=== PATIENT | female | born 1940 | race Caucasian/White ===

== ENCOUNTER 2017-04-21 00:09 | Inpatient (IN) | payer MEDICARE, OTHER ==
--- NOTE | 2017-04-21 00:40 | ERNOTE ---
Abdominal HPI - Narrative Date of Service: 04/21/17 - General Chief Complaint: Abdominal Pain Time Seen by Provider: 04/21/17 00:36 Source: patient, family Exam Limitations: other - THE PT REMEBERS MOST THINGS WELL BUT SEEMS CONFUSED ON OTHERS. FAMILY SAYS SHE DOES NOT HAVE DEMENTIA DIAGNOSED BUT HAS BEEN "FOGGY " SINCE HER SURGERY. - Immun/Allergies/Home Medications Immunizatons: IMMUNIZATION HX Immunizations Up to Date Yes History of Influenza Vaccine Yes Hx Pneumococcal Vaccination Yes Allergies/Adverse Reactions: Allergies gentamicin [Gentamicin] Allergy (Verified 04/21/17 00:28) adhesive Adverse Reaction (Verified 04/21/17 00:28) Home Medications: HOME MEDICATIONS Acetaminophen 650 mg PO PRN PRN 04/21/17 [Last Taken Unknown] Albuterol Sulfate [Albuterol Sulfate 0.63 MG/3ML] INH PRN PRN 04/21/17 [Last Taken Unknown] Allopurinol [Zyloprim (Allopurinol)] 100 mg PO BID 04/21/17 [Last Taken Unknown] Rachel Protect Cream 1 appl TID 04/21/17 [Last Taken Unknown] Budesonide [Pulmicort Respules] 2 ml IH BID 04/21/17 [Last Taken Unknown] Cefuroxime Axetil [Ceftin] 500 mg PO BID 04/21/17 [Last Taken Unknown] Cholecalciferol (Vitamin D3) [Vitamin D] 2,000 unit PO DAILY 04/21/17 [Last Taken Unknown] Cholestyramine/Aspartame [Cholestyramine Light Packet] 1 packet PO PRN PRN 04/21 [Last Taken Unknown] FLUoxetine HCL [Fluoxetine HCl] 20 mg PO DAILY 04/21/17 [Last Taken Unknown] Furosemide [Lasix] 80 mg PO BID 04/21/17 [Last Taken Unknown] Letrozole [Femara] 2.5 mg PO DAILY 04/21/17 [Last Taken Unknown] Loperamide HCl [Loperamide] 2 mg PO PRN PRN 04/21/17 [Last Taken Unknown] Loratadine [Claritin] 10 mg PO DAILY 04/21/17 [Last Taken Unknown] Metoprolol Tartrate [Lopressor] 25 mg PO BID 04/21/17 [Last Taken Unknown] Montelukast Sodium [Singulair] 10 mg PO QPM 04/21/17 [Last Taken Unknown] Multivitamin [Multivitamins] 1 each PO DAILY 04/21/17 [Last Taken Unknown] Potassium Chloride [K-Tab ER] 10 meq PO DAILY 04/21/17 [Last Taken Unknown] QUEtiapine FUMARATE [Seroquel] 25 mg PO QPM 04/21/17 [Last Taken Unknown] Warfarin Sodium [Jantoven] 6 mg PO DAILY 04/21/17 [Last Taken Unknown] Zinc Oxide [Perishield] 100 gm TP BID 04/21/17 [Last Taken Unknown] - History of Present Illness Narrative: PT HERE WITH ABD PAIN WITH INFECTION FROM WOUND DEHISCENCE AND SUPPOSED TO BE ON ORAL ANTIBIOTICS BUT REPORTEDLY NOT TAKING THEM CONSISTENTLY . [facility] REPORTS INTERMITTENT FEVERS AND SOME DIARRHEA AND THEY MENTIONED BLOOD IN THE STOOLS. REVIEWING [facility] PAPERS I FIND NO TEMP REPORTED. PT SAYS IT WAS "1.8". SHE HAS LONG HX. OF UTI'S AND SAYS SHE "SOMETIMES" HAS DYSURIA. SHE SAW ON THE SURGEON WHO DID A BOWEL RESECTION IN [facility] 2 WEEKS AGO FOR RUPTURED DIVERTICULITIS AND HAD DIMITRY REMOVED BUT LOWER SECTION OF THE WOUND DEHISCED . SHE WAS STARTED ON CEFTIN , 500 BID BUT REFUSES THE NIGHT TIME DOSE . THE WOUND HAS BEEN LOOKING GOOD. SHE HAD CBC,PT/INR AND C.DIFF ORDERED ON ALSO WITH CBC SHOWING HGB = 7.7 BUT OTHERWISE NORMAL. HER INR IS 2.63 ( SHE SAYS SHE IS ON COUMADIN FOR A LONG HX OF ATRIAL FIB AND DVT'S N THE PAST). HER C DIFF WAS NOT COLLECTED UNTIL THE AND IS NEGATIVE. Review of Systems - Review of Systems Constitutional: Present: See HPI EYE: Present: no symptoms reported ENT: Present: no symptoms reported Respiratory: Present: no symptoms reported Cardiology: Present: no symptoms reported Gastrointestinal/Abdominal: Present: See HPI, abdominal pain - AT WOUND SITE. Genitourinary: Present: See HPI, dysuria Musculoskeletal: Present: no symptoms reported Skin: Present: no symptoms reported Neurological: Present: See HPI Endocrine: Present: no symptoms reported Hematologic/Lymphatic: Present: no symptoms reported Psych: Present: no symptoms reported All Other Systems: All systems neg except as marked - Patient's Past Medical History Patient History - Medical: Anxiety, Depression, Obesity, Other - DIVERTICULITIS Patient History - Cardiac/Respiratory: Atrial Fibrillation, Asthma, Cardiac Arrest, Deep Vein Thrombosis, Sleep Apnea, Other Patient History - Cancer: Breast Patient History - Surgical Procedures: Appendectomy, Cancer Surgery, Cholecystectomy, Colon Resection, Colonoscopy, Hysterectomy, Total Knee Replacement, Other Patient History - Other: None - Social History Living Situations: assisted Abuse History: No History of abuse Psych History: Hx of Anxiety, Hx of Depression Smoking Status: Former smoker Have you smoked in the past 12 months: No Do you dip or chew tobacco: No Alcohol Use: none Drug Use: none - Immunizations Immunizations Up to Date: Yes Hx Pneumococcal Vaccination: Yes History of Influenza Vaccine: Yes Physical Exam - Physical Exam General Appearance: Present: wd/wn, alert, no apparent distress - ELDERLY , OBESE LADY , VERY ALERT AND COOP BUT A LITTLE FUZZY ON HX. DETAILS. VSS WITH TEM[P = 37.5 , SHE HAS NOT HAD ANY TYLENOL SHE REFUSED AT THE [facility] Respiratory: Present: no respiratory distress, normal breath sounds, no accessory muscle use, chest nontender, lungs clear, accessory muscle use Cardiovascular/Chest: Present: regular rate, rhythm, no murmur, normal peripheral pulses Gastrointestinal/Abdominal: Present: normal bowel sounds, nontender, soft, no organomegaly, other - SHE HAS A DEHISCENCE OF THE LOWER 4-5 CM OF HER MIDLINE LOWER ABDOMINAL WHICH LOOKS CLEAN AND NON - INFECTED WITH PACKING IN PLACE. Back Exam: Present: normal inspection, no vertebral tenderness, CVA tenderness ( R), CVA tenderness (L) - SHE STATES SOME MILD BILATERAL CVA TENDRNESS TO MILD THUMP. Neurological Exam: Present: alert Skin Exam: Present: normal color ED Progress - Results and Orders Patient's Lab Results:: I have reviewed the patient's lab results. Results and Orders: HGB = 7.6 WITH GOOD PLTS. INR = 2.43, CMP = UNREMARKABLE EXCEPT ALB = 2.0 , HEME + STOOL. UA = NL. - Vital Signs Vital Signs: Vital Signs 04/21/17 00:12 Temperature 37.5 C Pulse Rate 90 Respiratory 24 H Rate Blood Pressure 135/67 O2 Sat by Pulse 100 Oximetry - Progress/Reassessment Chief Complaint: Abdominal Pain Plan - Plan Plan: D/W LISSETH IQBAL, HOSPITALIST , TO TO OBS ADMIT FOR GI BLEED AND ANEMIA AND ANTICOAGULATION. Departure - Departure Clinical Impression: Heme positive stool, Anticoagulated on Coumadin Anemia Qualifiers: Anemia type: other cause Other causes of anemia: other cause, not classified Qualified Code(s): D64.89 - Other specified anemias Postoperative wound dehiscence Qualifiers: Encounter type: subsequent encounter Qualified Code(s): T81.31XD - Disruption of external operation (surgical) wound, not elsewhere classified, subsequent encounter Disposition: [facility] Condition: Fair Referrals: Fabiano Alvarez MD [Primary Care Provider] -
[2017-04-21 00:52] LABS: Hematocrit 26.2 % (37.0-47.0); Mean Cell Volume 94.9 fl (78-100); Mean Corpuscular Hemoglobin 27.5 pg (27-31); Mean Platelet Volume 8.4 fl (6.0-9.5); NRBC# 0.1 k/mm3 (0-1); Neutrophil # 5.3 K/mm3 (1.3-6.0); Neutrophil % 65.7 % (42-75.0); Platelet Count 280 K/mm3 (150-450); Red Blood Count 2.76 M/mm3 (4.2-5.4); Red Cell Distribution Width 16.5 % (11.5-14.0); White Blood Count 8.1 K/mm3 (4.0-10.5)
[2017-04-21 00:59] LABS: Hemoglobin 7.6 gm/dL (12.5-16.0)
[2017-04-21 01:03] LABS: Prothrombin Time (Patient) 25.5 Seconds (9.4-11.4)
[2017-04-21 01:04] LABS: INR 2.45 INR (0.90-1.10)
[2017-04-21 01:07] LABS: Anion Gap 4.9 mmol/L (6.8-13.8); BUN/Creatinine Ratio 16.3 (9.0-21.6); Bilirubin, Total 0.2 mg/dL (0.0-1.1); CRP 8.3 mg/dL (0.0-0.9); Ca. Corrected For Albumin 9.8 mg/dL (8.4-10.2); Calcium * 8.5 mg/dL (7.9-10.9); Carbon Dioxide 40.9 mmol/L (24-32.6); Potassium 3.8 mmol/L (3.4-4.6); Total Protein 6.6 gm/dL (6.2-8.2)
[2017-04-21 01:26] LABS: Urine Bilirubin Negative (NEGATIVE); Urine Blood Negative /ul (NEGATIVE); Urine Ketone Negative (NEGATIVE); Urine Nitrite Negative (NEGATIVE); Urine Protein 15 mg/dL (NEGATIVE); Urine Urobilinogen Normal (NORMAL)
[2017-04-21 01:45] LABS: Urine Appearance Clear; Urine Bacteria TRACE; Urine Color Yellow; Urine RBC None Seen /hpf (0-5); Urine WBC 0-5 /hpf (0-5)
[2017-04-21 01:46] LABS: Urine Amorphous Sediment Few - 1+ (NONE-FEW)
--- OUTSIDE RECORDS SUMMARY | 2017-04-21 02:15 | XMS REPORT | Continuity of Care Document ---
:1940 Author Organization [facility] ([facility]) Address [address] [place] [address] Phone [phone] Care Team Providers Name Role Phone Julia Rowan Primary Care Provider [phone] Source Comments This disclosure is being made pursuant to the Care Everywhere program, applicable federal and state laws, and may not contain all informaitonavailable regarding this patient.[facility] ([facility]) Active Allergies and Adverse Reactions Allergen Noted Date Severity Reactions Comments Gentamicin 08/01/2009 Cardiac Arrhythmia Kidney failure Venom-Wasp 04/22/2012 Rash Wasp stings Current Medications Prescription Sig. Disp. Refills Start Date End Date Status aspirin 81 mg tablet take 81 mg by mouth Active daily. triamterene-hydrochlorot Take 0.5 capsules Active hiazide (DYAZIDE) by mouth every 37.5-25 mg per capsule morning. diltiazem (TAZTIA XT) take 360 mg by Active 360 mg SR capsule mouth daily. BUDESONIDE/FORMOTEROL use by inhalation Active FUMARATE (SYMBICORT as needed. INHL) citalopram (CELEXA) 40 Take 40 mg by mouth Active mg tablet daily. Yqgetvrc-Tyraoum-Segi-Chaparrita Take by mouth Active tein (CENTRUM SILVER daily. ULTRA WOMEN'S) Tab buPROPion Take 150 mg by Active (WELLBUTRIN-SR) 150 mg mouth daily. SR tablet ALBUTEROL INH Use by inhalation Active every 4 hours as needed. WARFARIN SODIUM 8 mg daily. Active (WARFARIN, BULK, NA ) ALLOPURINOL 100 mg Take 100 mg by 02/26/2014 Active tablet mouth 2 times daily. LETROZOLE 2.5 mg tablet Take 2.5 mg by 02/14/2014 Active mouth daily. LISINOPRIL 2.5 mg tablet 02/14/2014 Active MONTELUKAST 10 mg tablet 02/14/2014 Active LORATADINE (CLARITIN PO) Take by mouth. Active multivitamin tablet Take 1 Tab by mouth Active daily. LACTOBACILLUS Take by mouth. Active ACIDOPHILUS (ACIDOPHILUS PO) FUROSEMIDE 20 mg tablet Take 20 mg by mouth 04/08/2014 Active daily. tamsulosin 0.4 mg ER Take 1 Cap by mouth 30 Cap 11 04/14/2014 Active capsule daily. Indications: incomplete bladder emptying LORAZEPAM 0.5 mg tablet 08/08/2014 Active METHYLPREDNISOLONE 32 mg 06/21/2014 Active tablet TRAMADOL 50 mg tablet 08/14/2014 Active calcium carbonate (500 Take 1 Tab by mouth Active mg Ca) 1250 mg -vitamin 2 times daily. D 200 unit per tablet cefiXIME (SUPRAX) 400 mg Take 1 Tab by mouth 10 Tab 0 10/05/2014 Active tablet daily. Indications: UTI oxyCODONE-acetaminophen Take 1 Tab by mouth Active 5-325 mg per tablet every 4 hours as needed. Do Not exceed 4000 mg of acetaminophen per 24 hours. CEPHALEXIN (KEFLEX PO) Take by mouth 2 Active times daily. QUETIAPINE FUMARATE Take by mouth Active (SEROQUEL PO) daily. Active Problems Problem Noted Date Hematuria, gross 06/11/2016 Malignant neoplasm of right breast 10/05/2014 Overview: Treated with surgical excision and XRT in May 2013. Currently on Femara. Recent imaging enlarged lymph node in chest and lung lesion, still in evaluation process Incomplete bladder emptying 10/05/2014 Atrial fibrillation 10/05/2014 Morbid obesity 08/18/2014 Mixed incontinence urge and stress (male)(female) 03/03/2014 Osteoarthritis 09/25/2011 HTN (hypertension) 09/25/2011 Asthma 09/25/2011 Recurrent UTI 09/25/2011 Most Recent Encounters Date Type Specialty Providers Description 03/11/2017 Hospital Encounter Radiation Oncology Mason Bee, Chief Comp: Patient MD Reported Reason For Visit Immunizations Name Dates Previously Given Next Due Influenza, unspecified 07/16/2012 Social History Tobacco Use Types Packs/Day Years Used Date Former Smoker Cigarettes 15 Quit: 11/03/1985 Smokeless Tobacco: Never Used Tobacco Cessation:Counseling Given: Yes Comments: Alcohol Use Drinks/Week oz/Week Comments No Last Filed Vital Signs Vital Sign Reading Time Taken Blood Pressure 145/77 06/11/2016 9:12 AM CDT Pulse 67 06/11/2016 9:12 AM CDT Temperature 35.9 C (96.7 F) 06/11/2016 9:12 AM CDT Respiratory Rate 20 01/13/2013 11:39 AM CDT Height 1.753 m (5' 9") 01/13/2013 11:39 AM CDT Weight 130.681 kg (288 lb 1.6 oz) 11/01/2014 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
--- OUTSIDE RECORDS SUMMARY | 2017-04-21 02:20 | XMS REPORT | Continuity of Care Document ---
:1940 Author Organization [facility] ([facility]) Address [address] [place] [address] Phone [phone] Care Team Providers Name Role Phone Julia Rowan Primary Care Provider [phone] Source Comments This disclosure is being made pursuant to the Care Everywhere program, applicable federal and state laws, and may not contain all informaitonavailable regarding this patient.[facility] ([facility]) Active Allergies and Adverse Reactions Allergen Noted [...] mg by mouth Active mg tablet daily. 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
--- NOTE | 2017-04-21 03:56 | HP ---
<Lea Real - Last Filed: 04/21/17 05:33> Chief Complaint - Chief Complaint Date of Service: 04/21/17 Time of Service: 03:02 Chief Complaint: 'Delirium, non- compliant with medications, fever'. Source of HPI- Pt; unreliable, ER provider report, pt's daughter Angeli, pt's son-micheline Barba. History of Present Illness: Mrs Crawford is 76-yr-old [place] pt of Dr. Fabiano Alvarez with a PMH of: A-fib, ANURADHA, CAD, COPD, HTN & HLD. History is unobtainable from the pt due to memory impairment, and therefore pt's daughter & son in-law provided most of the information. They state that on 03/20/17, pt drove herself to the [facility] where she was found to have an active lower GI bleed. On 03/21, she had a colonoscopy procedure which revealed diverticular bleeding and it was repaired. She coded post colonoscopy and was able to be revived with CPR and NO medications. However , on 03/27/17 she had recurrent bleeding again and ended up undergoing an open resection of mid transverse colon to the level of descending colon. She was at the [facility] for about 1 week and was later discharged to [facility] [place] for continued rehabilitation and strengthening. She has been residing at the [facility] for 2 weeks now. Her mid section wound dehisced on 04/18/17. She was started on Ceftin prophylactically and along with daily packing dressing changes of the wound. The [facility] placed the call to the On- Call Service and I happened to be provider OC. The C/C was that pt had a low grade fever of 100.8 and that pt had been non -compliant with taking her evening/hs doses of antibiotics along with other medications, and wanted the pt to be evaluated at the ED. She was send to the [facility] [place] ER by the EMS. There were no associated symptoms of n/v, abdominal pain or BRBPR . The patient admits to feeling fatigued and having pain on surgical site. During evaluation at the ED , she was afebrile and other V.S were stable. There was no infection on UA. Most lab-work was unremarkable except for a H/H level of 26.2/7.5 & positive hemoccult stool. She will be admitted under observation status for possible GI bleeding and to trend the H/H. - Patient's Past Medical History Patient History - Medical: Anxiety, Depression, Obesity, Other - DIVERTICULITIS Patient History - Cardiac/Respiratory: Atrial Fibrillation, Asthma, Cardiac Arrest, Deep Vein Thrombosis, Sleep Apnea, Other Patient History - Cancer: Breast Patient History - Surgical Procedures: Appendectomy, Cancer Surgery, Cholecystectomy, Colon Resection, Colonoscopy, Hysterectomy, Total Knee Replacement, Other Patient History - Other: None - Family History Father Family History - Medical: Family History - Cardiac/Respiratory: Atrial Fibrillation Mother Family History - Medical: , Diabetes Type 2 - Social History Living Situations: long term Abuse History: No History of abuse Psych History: Hx of Anxiety, Hx of Depression Smoking Status: Former smoker Have you smoked in the past 12 months: No Do you dip or chew tobacco: No Alcohol Use: none Drug Use: none - Immunizations Immunizations Up to Date: Yes Hx Pneumococcal Vaccination: Yes History of Influenza Vaccine: Yes Review Of Systems (GEN) - Review of Systems Generalized/Overall Review: Present: Weakness, Malaise. Absent: Chills, Fever EENTM: Absent: Eye Pain, Double Vision, Nose Congestion Respiratory: Present: Cough, Shortness of Breath. Absent: Orthopnea Cardiac: Absent: Chest Pain, Edema, Palpitations Abdominal: Present: Nausea, Diarrhea - Stool was tested for c-diff at the long term and it was negative.. Absent: Vomiting, Hematemesis, Abdominal Pain Genitourinary: Present: Burning, Itching Neurological: Present: Headache, Anxiety, Depressed Skin: Present: Dryness, Lesions Endocrine: Present: Intolerance to Cold. Absent: Increased Hunger, Flushing, Increased Thirst Misc: All systems neg except as marked Immunizations: IMMUNIZATION HX Immunizations Up to Date Yes History of Influenza Vaccine Yes Hx Pneumococcal Vaccination Yes Allergies/Adverse Reactions: Allergies Allergy/AdvReac Type Severity Reaction Status Date / Time gentamicin [Gentamicin] Allergy Verified 04/21/17 00:28 adhesive AdvReac Verified 04/21/17 00:28 Home Medications: HOME MEDICATIONS Acetaminophen 650 mg PO Q4H PRN 04/21/17 [Last Taken Unknown] Albuterol Sulfate [Albuterol Sulfate 2.5 MG/3 ML] 1 vial INH Q6H PRN 04/21/17 [ Last Taken Unknown] Allopurinol [Zyloprim (Allopurinol)] 100 mg PO BID 04/21/17 [Last Taken Unknown] Budesonide [Pulmicort Respules] 2 ml IH BID 04/21/17 [Last Taken Unknown] Cefuroxime Axetil [Ceftin] 500 mg PO BID 04/21/17 [Last Taken Unknown] Cholecalciferol (Vitamin D3) [Vitamin D] 2,000 unit PO DAILY 04/21/17 [Last Taken Unknown] Cholestyramine/Aspartame [Cholestyramine Light Packet] 1 packet PO DAILY PRN [Last Taken Unknown] FLUoxetine HCL [Fluoxetine HCl] 20 mg PO DAILY 04/21/17 [Last Taken Unknown] Furosemide [Lasix] 80 mg PO BID 04/21/17 [Last Taken Unknown] Letrozole [Femara] 2.5 mg PO DAILY 04/21/17 [Last Taken Unknown] Loperamide HCl [Loperamide] 2 mg PO PRN PRN 04/21/17 [Last Taken Unknown] Loratadine [Claritin] 10 mg PO DAILY 04/21/17 [Last Taken Unknown] Metoprolol Tartrate [Lopressor] 25 mg PO BID 04/21/17 [Last Taken Unknown] Miconazole Nitrate [Rachel] 1 appl TP PRN PRN 04/21/17 [Last Taken Unknown] Miconazole Nitrate [Rachel] 1 appl TP TID 04/21/17 [Last Taken Unknown] Montelukast Sodium [Singulair] 10 mg PO QPM 04/21/17 [Last Taken Unknown] Multivitamin [Multivitamins] 1 each PO DAILY 04/21/17 [Last Taken Unknown] Potassium Chloride [K-Tab ER] 10 meq PO DAILY 04/21/17 [Last Taken Unknown] QUEtiapine FUMARATE [Seroquel] 25 mg PO QPM 04/21/17 [Last Taken Unknown] Warfarin Sodium [Jantoven] 6 mg PO DAILY 04/21/17 [Last Taken Unknown] Zinc Oxide [Perishield] 100 gm TP BID 04/21/17 [Last Taken Unknown] Exam - Exam Vital Signs: Vital Signs - Last Taken Temp 37.5 C 04/21/17 00:12 Pulse 87 04/21/17 01:57 Resp 16 04/21/17 01:57 BP 115/50 04/21/17 01:57 Pulse Ox 93 04/21/17 01:57 Constitutional: Present: Alert, Oriented x3, No distress, Elderly ENT Exam: Present: normal ENT inspection, hearing grossly normal Eye Exam: bilateral eye: normal inspection, PERRL Neck: Present: full range of motion, supple, normal inspection Back Exam: Present: no CVA tenderness Breasts: Present: Exam deferred Respiratory: Present: lungs clear, no accessory muscle use Cardiovascular/Chest: Present: normal peripheral pulses, irregularly irregular Abdomen: Present: Normal bowel sounds, obese, tender - on surgical cite. /Rectal: Present: Exam deferred Extremity: Present: normal range of motion, non-tender, normal inspection Skin Exam: Present: warm/dry, no cyanosis, other - Surgical Incision site on mid albdomen with dehiscence on the lower end. The wound is drainage is clear. No hotness or redness around the wound. Lymphatic: Present: no adenopathy Neurologic: Present: alert, normal mood/affect, oriented x 3 Appearance: Present: appropriate appearance, appropriate insight Eye contact: Present: cooperative, good eye contact, normal speech Thoughts: Present: normal thought pattern, no apparent hallucination Diagnostic Studies: Laboratory Results WBC 8.1 K/mm3 (4.0-10.5) 04/21/17 00:45 RBC 2.76 M/mm3 (4.2-5.4) L 04/21/17 00:45 Hgb 7.6 gm/dL (12.5-16.0) L* 04/21/17 00:45 Hct 26.2 % (37.0-47.0) L 04/21/17 00:45 MCV 94.9 fl (78-100) 04/21/17 00:45 MCH 27.5 pg (27-31) 04/21/17 00:45 MCHC 29.0 g/dl (32-36) L 04/21/17 00:45 RDW 16.5 % (11.5-14.0) H 04/21/17 00:45 Plt Count 280 K/mm3 (150-450) 04/21/17 00:45 MPV 8.4 fl (6.0-9.5) 04/21/17 00:45 Immature Gran % (Auto) 0.50 % (0.001-0.429) H 04/21/17 00:45 Immature Gran # (Auto) 0.04 K/mm3 (0.000-0.0310) H 04/21/17 00:45 Neutrophils % 65.7 % (42-75.0) 04/21/17 00:45 Lymphocytes % 17.9 % (20-51) L 04/21/17 00:45 Monocytes % 10.9 % (0.0-9) H 04/21/17 00:45 Eosinophils % 4.8 % (0.0-3.0) H 04/21/17 00:45 Basophils % 0.2 % (0.0-1.0) 04/21/17 00:45 Nucleated RBC % 0.1 k/mm3 (0-1) 04/21/17 00:45 Neutrophils # 5.3 K/mm3 (1.3-6.0) 04/21/17 00:45 Lymphocytes # 1.4 k/mm3 (1.5-3.5) L 04/21/17 00:45 Monocytes # 0.9 k/mm3 (0.0-1.0) 04/21/17 00:45 Eosinophils # 0.4 k/mm3 (0.0-0.7) 04/21/17 00:45 Absolute Basophils 0.0 k/mm3 (0.0-0.1) 04/21/17 00:45 PT 25.5 Seconds (9.4-11.4) H 04/21/17 00:45 INR (Anticoag Therapy) 2.45 INR (0.90-1.10) H 04/21/17 00:45 Sodium 144 mmol/L (132-142) H 04/21/17 00:45 Plasma Sodium 144 mmol/L (130-142) H 04/21/17 00:45 Potassium 3.8 mmol/L (3.4-4.6) 04/21/17 00:45 Chloride 102 mmol/L (97-106) 04/21/17 00:45 Carbon Dioxide 40.9 mmol/L (24-32.6) H 04/21/17 00:45 Anion Gap 4.9 mmol/L (6.8-13.8) L 04/21/17 00:45 BUN 16 mg/dL (3-23) 04/21/17 00:45 Creatinine 0.98 mg/dL (0.4-1.4) 04/21/17 00:45 Est GFR (Non-Af Amer) 58 mL/min (60-130) L 04/21/17 00:45 BUN/Creatinine Ratio 16.3 (9.0-21.6) 04/21/17 00:45 Random Glucose 119 mg/dL (70-110) H 04/21/17 00:45 Calcium 8.5 mg/dL (7.9-10.9) 04/21/17 00:45 Calcium Adj for Albumin 9.8 mg/dL (8.4-10.2) 04/21/17 00:45 Total Bilirubin 0.2 mg/dL (0.0-1.1) 04/21/17 00:45 AST 17 U/L (0-48) 04/21/17 00:45 ALT 14 U/L (19-67) L 04/21/17 00:45 Alkaline Phosphatase 107 U/L (50-170) 04/21/17 00:45 C-Reactive Prot, Quant 8.3 mg/dL (0.0-0.9) H 04/21/17 00:45 Total Protein 6.6 gm/dL (6.2-8.2) 04/21/17 00:45 Albumin 2.0 gm/dl (3.4-5.0) L 04/21/17 00:45 Lipase 229 U/L (73-393) 04/21/17 00:45 Urine Color Yellow 04/21/17 01:18 Urine Appearance Clear 04/21/17 01:18 Urine pH 6.0 pH (5.0-7.0) 04/21/17 01:18 Ur Specific Gaston 1.020 SP.GR. (1.005-1.010) 04/21/17 01:18 Urine Protein 15 mg/dL (NEGATIVE) H 04/21/17 01:18 Urine Glucose (UA) Negative mg/dL (NEGATIVE) 04/21/17 01:18 Urine Ketones Negative mg/dL (NEGATIVE) 04/21/17 01:18 Urine Blood Negative /ul (NEGATIVE) 04/21/17 01:18 Urine Nitrate Negative (NEGATIVE) 04/21/17 01:18 Urine Bilirubin Negative mg/dl (NEGATIVE) 04/21/17 01:18 Prot Sulfosalicylic Acd Negative mg/dL (0) 04/21/17 01:18 Urine Urobilinogen Normal EU/dl (NORMAL) 04/21/17 01:18 Ur Leukocyte Esterase Negative /ul (NEGATIVE) 04/21/17 01:18 Urine RBC None seen /hpf (0-5) 04/21/17 01:18 Urine WBC 0-5 /hpf (0-5) 04/21/17 01:18 Ur Epithelial Cells None seen /hpf (0-5) 04/21/17 01:18 Amorphous Sediment Few - 1+ (NONE-FEW) 04/21/17 01:18 Urine Bacteria Trace (NONE) 04/21/17 01:18 Hyaline Casts 5-10 /LPF (NONE) H 04/21/17 01:18 Urine Culture Comments No culture indicated 04/21/17 01:18 Stool Occult Blood Positive H 04/21/17 01:18 Assessment/Plan - Assessment/Plan (1) GI bleeding Assessment: Pt noted to have H&H of : 26.2/7.6. No sign of active bleeding or hemodynamic instability and positive hemoccult stool is likely the residual of prior GI bleeding. Will admit for supportive cares with IVF hydration, Monitor serial H& H. In the event that Hbg drops to < 7, will transfuse and transfer her to [facility] ( which is where she had GI surgeries) for continuity of care and also where her family/POA would prefer. Therefore no need to consult our surgeon for this GI bleed case. If no acute events and hgb stays stable, will plan on discharging on Sunday 04/22. Problem: Acute (2) Postoperative wound dehiscence Assessment: The wound has good healing signs, no redness, hotness and drainage is clear. Continue packing the wound with Kerlix Roll and daily dressing changes as set forth by [facility] surgery. Problem: Acute QualifierTitle: Encounter type: subsequent encounter Qualified Code(s): T81.31XD - Disruption of external operation (surgical) wound, not elsewhere classified, subsequent encounter (3) A-fib Assessment: Will hold her Coumadin for now and may restart if hgb atays stable and if no sign of active bleeding. She will be place on Telemetry monitoring. Place SCDs Problem: Chronic (4) HTN (hypertension) Problem: Chronic (5) HLD (hyperlipidemia) Problem: Chronic (6) COPD (chronic obstructive pulmonary disease) Assessment: Stable- CPAP at night with home settings, oxygen per protocol. Problem: Chronic <Fabiano Alvarez - Last Filed: 04/21/17 08:14> Immunizations: IMMUNIZATION HX Immunizations Up to Date Yes History of Influenza Vaccine Yes Hx Pneumococcal Vaccination Yes Exam - Exam Vital Signs: Vital Signs - Last Taken Temp 36.8 C 04/21/17 07:47 Pulse 94 04/21/17 07:47 Resp 20 04/21/17 07:47 BP 145/54 04/21/17 07:47 Pulse Ox 94 04/21/17 07:47 Diagnostic Studies: Abnormal Lab Results 04/21/17 Range/Units 05:52 Hgb 7.4 L* (12.5-16.0) gm/dL Hct 25.5 L (37.0-47.0) % Laboratory Results WBC 8.1 K/mm3 (4.0-10.5) 04/21/17 00:45 RBC 2.76 M/mm3 (4.2-5.4) L 04/21/17 00:45 Hgb 7.4 gm/dL (12.5-16.0) L* 04/21/17 05:52 Hct 25.5 % (37.0-47.0) L 04/21/17 05:52 MCV 94.9 fl (78-100) 04/21/17 00:45 MCH 27.5 pg (27-31) 04/21/17 00:45 MCHC 29.0 g/dl (32-36) L 04/21/17 00:45 RDW 16.5 % (11.5-14.0) H 04/21/17 00:45 Plt Count 280 K/mm3 (150-450) 04/21/17 00:45 MPV 8.4 fl (6.0-9.5) 04/21/17 00:45 Immature Gran % (Auto) 0.50 % (0.001-0.429) H 04/21/17 00:45 Immature Gran # (Auto) 0.04 K/mm3 (0.000-0.0310) H 04/21/17 00:45 Neutrophils % 65.7 % (42-75.0) 04/21/17 00:45 Lymphocytes % 17.9 % (20-51) L 04/21/17 00:45 Monocytes % 10.9 % (0.0-9) H 04/21/17 00:45 Eosinophils % 4.8 % (0.0-3.0) H 04/21/17 00:45 Basophils % 0.2 % (0.0-1.0) 04/21/17 00:45 Nucleated RBC % 0.1 k/mm3 (0-1) 04/21/17 00:45 Neutrophils # 5.3 K/mm3 (1.3-6.0) 04/21/17 00:45 Lymphocytes # 1.4 k/mm3 (1.5-3.5) L 04/21/17 00:45 Monocytes # 0.9 k/mm3 (0.0-1.0) 04/21/17 00:45 Eosinophils # 0.4 k/mm3 (0.0-0.7) 04/21/17 00:45 Absolute Basophils 0.0 k/mm3 (0.0-0.1) 04/21/17 00:45 PT 25.5 Seconds (9.4-11.4) H 04/21/17 00:45 INR (Anticoag Therapy) 2.45 INR (0.90-1.10) H 04/21/17 00:45 Sodium 144 mmol/L (132-142) H 04/21/17 00:45 Plasma Sodium 144 mmol/L (130-142) H 04/21/17 00:45 Potassium 3.8 mmol/L (3.4-4.6) 04/21/17 00:45 Chloride 102 mmol/L (97-106) 04/21/17 00:45 Carbon Dioxide 40.9 mmol/L (24-32.6) H 04/21/17 00:45 Anion Gap 4.9 mmol/L (6.8-13.8) L 04/21/17 00:45 BUN 16 mg/dL (3-23) 04/21/17 00:45 Creatinine 0.98 mg/dL (0.4-1.4) 04/21/17 00:45 Est GFR (Non-Af Amer) 58 mL/min (60-130) L 04/21/17 00:45 BUN/Creatinine Ratio 16.3 (9.0-21.6) 04/21/17 00:45 Random Glucose 119 mg/dL (70-110) H 04/21/17 00:45 Calcium 8.5 mg/dL (7.9-10.9) 04/21/17 00:45 Calcium Adj for Albumin 9.8 mg/dL (8.4-10.2) 04/21/17 00:45 Total Bilirubin 0.2 mg/dL (0.0-1.1) 04/21/17 00:45 AST 17 U/L (0-48) 04/21/17 00:45 ALT 14 U/L (19-67) L 04/21/17 00:45 Alkaline Phosphatase 107 U/L (50-170) 04/21/17 00:45 C-Reactive Prot, Quant 8.3 mg/dL (0.0-0.9) H 04/21/17 00:45 Total Protein 6.6 gm/dL (6.2-8.2) 04/21/17 00:45 Albumin 2.0 gm/dl (3.4-5.0) L 04/21/17 00:45 Lipase 229 U/L (73-393) 04/21/17 00:45 Urine Color Yellow 04/21/17 01:18 Urine Appearance Clear 04/21/17 01:18 Urine pH 6.0 pH (5.0-7.0) 04/21/17 01:18 Ur Specific Gaston 1.020 SP.GR. (1.005-1.010) 04/21/17 01:18 Urine Protein 15 mg/dL (NEGATIVE) H 04/21/17 01:18 Urine Glucose (UA) Negative mg/dL (NEGATIVE) 04/21/17 01:18 Urine Ketones Negative mg/dL (NEGATIVE) 04/21/17 01:18 Urine Blood Negative /ul (NEGATIVE) 04/21/17 01:18 Urine Nitrate Negative (NEGATIVE) 04/21/17 01:18 Urine Bilirubin Negative mg/dl (NEGATIVE) 04/21/17 01:18 Prot Sulfosalicylic Acd Negative mg/dL (0) 04/21/17 01:18 Urine Urobilinogen Normal EU/dl (NORMAL) 04/21/17 01:18 Ur Leukocyte Esterase Negative /ul (NEGATIVE) 04/21/17 01:18 Urine RBC None seen /hpf (0-5) 04/21/17 01:18 Urine WBC 0-5 /hpf (0-5) 04/21/17 01:18 Ur Epithelial Cells None seen /hpf (0-5) 04/21/17 01:18 Amorphous Sediment Few - 1+ (NONE-FEW) 04/21/17 01:18 Urine Bacteria Trace (NONE) 04/21/17 01:18 Hyaline Casts 5-10 /LPF (NONE) H 04/21/17 01:18 Urine Culture Comments No culture indicated 04/21/17 01:18 Stool Occult Blood Positive H 04/21/17 01:18 Assessment/Plan - Narrative Narrative: I agree with the plan. We will also consult wound healing, PICC and give IV Rocephin. I directed all the care provided by our nurse practitioner hospitalist.
[2017-04-21] MEDS ORDERED: NORMAL SALINE 1,000 ML IV PRN (03:59)
[2017-04-21] MEDS ORDERED: LOPERAMIDE 1 MG/5 ML PO PRN (05:15)
[2017-04-21] MEDS ORDERED: CHOLESTYRAMINE/ASPARTAME 4 GM PACKET PO PRN (05:15)
[2017-04-21] MEDS ORDERED: MICONAZOLE NITRATE 150 APPL TUBE TP PRN (05:45)
[2017-04-21 06:05] LABS: Hematocrit 25.5 % (37.0-47.0)
[2017-04-21 06:09] LABS: Hemoglobin 7.4 gm/dL (12.5-16.0)
[2017-04-21] MEDS: BUDESONIDE 0.5 MG/2 ML VIAL.NEB IH SCH ×2 (06:19→18:21)
[2017-04-21] MEDS ORDERED: MICONAZOLE NITRATE APPL TP PRN (06:21)
[2017-04-21] MEDS ORDERED: CEFUROXIME AXETIL 500 MG TABLET PO SCH (09:00)
[2017-04-21] MEDS ORDERED: ALLOPURINOL 100 MG TABLET PO SCH (09:00)
[2017-04-21] MEDS ORDERED: MICONAZOLE NITRATE 150 APPL TUBE TP SCH (09:00)
[2017-04-21] MEDS ORDERED: ACETAMINOPHEN 325 MG TABLET PO PRN (09:02)
[2017-04-21] MEDS: MICONAZOLE NITRATE APPL TP SCH ×3 (09:34→16:46)
[2017-04-21] MEDS: CHOLECALCIFEROL 1,000 UNIT CAPSULE PO SCH (09:34)
[2017-04-21] MEDS: FLUoxetine HCL 20 MG CAPSULE PO SCH (09:34)
[2017-04-21] MEDS: FUROSEMIDE 80 MG TABLET PO SCH ×2 (09:34→16:47)
[2017-04-21] MEDS: LORATADINE 10 MG TABLET PO SCH (09:34)
[2017-04-21] MEDS: POTASSIUM CHLORIDE 10 MEQ TABLET.SA PO SCH (09:35)
[2017-04-21] MEDS: METOPROLOL TARTRATE 25 MG TABLET PO SCH ×2 (09:35→20:04)
[2017-04-21] MEDS: FEMARA 2.5 MG PO SCH (09:35)
[2017-04-21] MEDS: MULTIVITAMINS 1 CAP CAPSULE PO SCH (09:35)
[2017-04-21] MEDS: CHOLESTYRAMINE/ASPARTAME 4 GM PACKET PO SCH ×4 (09:36→20:04)
[2017-04-21] MEDS: ZINC OXIDE 60 APPL TUBE TP SCH ×2 (09:36→20:04)
[2017-04-21] MEDS: LOPERAMIDE 1 MG/5 ML PO SCH ×2 (09:40→20:04)
[2017-04-21 12:21] LABS: Hematocrit 28.1 % (37.0-47.0); Hemoglobin 8.3 gm/dL (12.5-16.0)
[2017-04-21] MEDS: MONTELUKAST SODIUM 10 MG TABLET PO SCH (16:47)
[2017-04-21] MEDS: QUEtiapine FUMARATE 25 MG TABLET PO SCH (16:52)
[2017-04-21 18:20] LABS: Hematocrit 26.8 % (37.0-47.0)
[2017-04-21] MEDS: ALBUTEROL SULFATE 2.5 MG/3 ML VIAL.NEB IH PRN (18:21)
[2017-04-21 18:27] LABS: Hemoglobin 7.7 gm/dL (12.5-16.0)
[2017-04-21 20:00] LABS: Iron 12 mcg/dL (35-120); Transferrin Sat. (% Sat.) 5 % (15-55)
[2017-04-22 00:27] LABS: Hemoglobin 6.7 gm/dL (12.5-16.0)
[2017-04-22 00:28] LABS: Hematocrit 23.4 % (37.0-47.0)
[2017-04-22] MEDS: BUDESONIDE 0.5 MG/2 ML VIAL.NEB IH SCH ×2 (06:17→18:17)
[2017-04-22] MEDS: traMADol HCL 50 MG TABLET PO PRN ×2 (07:05→13:13)
[2017-04-22] MEDS: FUROSEMIDE 80 MG TABLET PO SCH ×2 (07:06→16:49)
[2017-04-22 07:17] LABS: Anion Gap 7.3 mmol/L (6.8-13.8); BUN/Creatinine Ratio 14.6 (9.0-21.6); Blood Urea Nitrogen 14 mg/dL (3-23); Calcium * 8.7 mg/dL (7.9-10.9); Carbon Dioxide 37.1 mmol/L (24-32.6); Chloride 104 mmol/L (97-106); Estimated Creat Clear 50.5; Glucose * 104 mg/dL (70-110); Potassium 4.4 mmol/L (3.4-4.6); Sodium 144 mmol/L (132-142); Troponin I Less than 0.017 ng/ml (0.00-0.10)
[2017-04-22] MEDS: CHOLECALCIFEROL 1,000 UNIT CAPSULE PO SCH (08:47)
[2017-04-22] MEDS: LORATADINE 10 MG TABLET PO SCH (08:47)
[2017-04-22] MEDS: FLUoxetine HCL 20 MG CAPSULE PO SCH (08:47)
[2017-04-22] MEDS: MULTIVITAMINS 1 CAP CAPSULE PO SCH (08:47)
[2017-04-22] MEDS: POTASSIUM CHLORIDE 10 MEQ TABLET.SA PO SCH (08:47)
[2017-04-22] MEDS: METOPROLOL TARTRATE 25 MG TABLET PO SCH ×2 (08:48→21:41)
[2017-04-22] MEDS: ZINC OXIDE 60 APPL TUBE TP SCH ×2 (08:48→21:40)
[2017-04-22] MEDS: FEMARA 2.5 MG PO SCH (08:49)
[2017-04-22] MEDS: LOPERAMIDE 1 MG/5 ML PO SCH ×2 (08:49→21:38)
[2017-04-22] MEDS: MICONAZOLE NITRATE APPL TP SCH ×3 (08:49→16:50)
[2017-04-22] MEDS: CHOLESTYRAMINE/ASPARTAME 4 GM PACKET PO SCH ×4 (08:50→21:39)
[2017-04-22] MEDS: LIDOCAINE 35 APPL TUBE TP SCH ×4 (08:50→21:39)
--- NOTE | 2017-04-22 09:05 | CONS ---
- Reason for consultation (1) Postoperative wound dehiscence Date of Service: 04/22/17 HPI - History of Present Illness Initial Comments: She did no history of recent abdominal surgery this was done by Dr. Conner in [place] several days ago . Carm[place] were removed then she developed wound dehiscent in the lower portion of the incision. Her surgeon is aware of this and managing her wound which consists of wet to Dry gauze and and she will continue to follow up with him Allergies/Adverse Reactions: Allergies gentamicin [Gentamicin] Allergy (Verified 04/21/17 00:28) levofloxacin Allergy (Verified 04/21/17 10:19) Swelling of Tongue Penicillins Allergy (Verified 04/21/17 10:19) Hives DANICA Inhibitors Adverse Reaction (Unknown, Verified 04/21/17 10:19) Sulfa (Sulfonamide Antibiotics) Adverse Reaction (Unknown, Verified 04/21/17 10: 19) terazosin Adverse Reaction (Unknown, Verified 04/21/17 10:19) adhesive Adverse Reaction (Verified 04/21/17 00:28) Iodinated Contrast Media - Oral and Adverse Reaction (Verified 04/21/17 10:19) Other Fainting lidocaine Adverse Reaction (Verified 04/21/17 10:19) Headache NSAIDS (Non-Steroidal Anti-Inflamma Adverse Reaction (Verified 04/21/17 10:19) Other Kidney problems oxycodone Adverse Reaction (Verified 04/21/17 10:19) Pain Home Medications: Home Medications Medication Instructions Recorded Last Taken Acetaminophen 650 mg PO Q4H PRN 04/21/17 Unknown Albuterol Sulfate [Albuterol 1 vial INH Q6H PRN 04/21/17 Unknown Sulfate 2.5 MG/3 ML] Allopurinol [Zyloprim 100 mg PO BID 04/21/17 Unknown (Allopurinol)] Budesonide [Pulmicort Respules] 2 ml IH BID 04/21/17 Unknown Cefuroxime Axetil [Ceftin] 500 mg PO BID 04/21/17 Unknown Cholecalciferol (Vitamin D3) 2,000 unit PO DAILY 04/21/17 Unknown [Vitamin D] Cholestyramine/Aspartame 1 packet PO DAILY PRN 04/21/17 Unknown [Cholestyramine Light Packet] FLUoxetine HCL [Fluoxetine HCl] 20 mg PO DAILY 04/21/17 Unknown Furosemide [Lasix] 80 mg PO BID 04/21/17 Unknown Letrozole [Femara] 2.5 mg PO DAILY 04/21/17 Unknown Loperamide HCl [Loperamide] 2 mg PO PRN PRN 04/21/17 Unknown Loratadine [Claritin] 10 mg PO DAILY 04/21/17 Unknown Metoprolol Tartrate [Lopressor] 25 mg PO BID 04/21/17 Unknown Miconazole Nitrate [Rachel] 1 appl TP PRN PRN 04/21/17 Unknown Miconazole Nitrate [Rachel] 1 appl TP TID 04/21/17 Unknown Montelukast Sodium [Singulair] 10 mg PO QPM 04/21/17 Unknown Multivitamin [Multivitamins] 1 each PO DAILY 04/21/17 Unknown Potassium Chloride [K-Tab ER] 10 meq PO DAILY 04/21/17 Unknown QUEtiapine FUMARATE [Seroquel] 25 mg PO QPM 04/21/17 Unknown Warfarin Sodium [Jantoven] 6 mg PO DAILY 04/21/17 Unknown Zinc Oxide [Perishield] 100 gm TP BID 04/21/17 Unknown - Patient's Past Medical History Patient History - Medical: Anxiety, Depression, Obesity, Other - DIVERTICULITIS Patient History - Cardiac/Respiratory: Atrial Fibrillation, Asthma, Cardiac Arrest, Deep Vein Thrombosis, Sleep Apnea, Other Patient History - Cancer: Breast Patient History - Surgical Procedures: Appendectomy, Cancer Surgery, Cholecystectomy, Colon Resection, Colonoscopy, Hysterectomy, Total Knee Replacement, Other Patient History - Other: None - Family History Father Family History - Medical: Family History - Cardiac/Respiratory: Atrial Fibrillation Mother Family History - Medical: , Diabetes Type 2 - Social History Living Situations: shelter Abuse History: No History of abuse Psych History: Hx of Anxiety, Hx of Depression Smoking Status: Former smoker Have you smoked in the past 12 months: No Do you dip or chew tobacco: No Patient requests Smoking Cessation Consult: No Initiate information on Smoking Cessation: No Alcohol Use: none Drug Use: none - Immunizations Immunizations Up to Date: Yes Hx Pneumococcal Vaccination: Yes History of Influenza Vaccine: Yes Procedures APPLICATION OF SPLINT (08/10/99) CYSTOSCOPY NEC (01/27/13) DRAINAGE OF BLADDER, VIA NATURAL OR ARTIFICIAL OPENING (04/21/17) ROTATOR CUFF REPAIR (03/22/05) SHOULDER ARTHROSCOPY (03/22/05) URETHROSCOPY NEC (10/02/11) Medications - Medications Current Medications: Current Medications Albuterol Sulfate (Albuterol Sulfate 2.5 Mg/3 Ml) 2.5 mg IH Q6H PRN PRN Reason: Wheezing Stop: 05/21/17 09:03 Last Admin: 04/21/17 18:21 Dose: 2.5 mg Budesonide (Pulmicort Respules) 0.5 mg IH BIDRT SANTOS Stop: 05/21/17 07:01 Last Admin: 04/22/17 06:17 Dose: 0.5 mg Cholecalciferol (Vitamin D) 2,000 unit PO DAILY SANTOS Stop: 05/21/17 09:01 Last Admin: 04/21/17 09:34 Dose: 2,000 unit Cholestyramine Resin (Questran Light Packet) 4 gm PO QID SANTOS Stop: 05/21/17 09:01 Last Admin: 04/21/17 20:04 Dose: 4 gm Fluoxetine HCl (Prozac) 20 mg PO DAILY SANTOS Stop: 05/21/17 09:01 Last Admin: 04/21/17 09:34 Dose: 20 mg Furosemide (Lasix) 80 mg PO BIDBRS SANTOS Stop: 05/21/17 07:01 Last Admin: 04/22/17 07:06 Dose: 80 mg Ceftriaxone Sodium 1,000 mg/ (Dextrose/Water) 100 mls @ 200 mls/hr IV Q24H SANTOS PRN Reason: Protocol Stop: 05/28/17 09:31 Last Infusion: 04/21/17 10:13 Dose: Infused Loperamide HCl (Imodium Liquid) 2 mg PO BID SANTOS Stop: 05/21/17 09:01 Last Admin: 04/21/17 20:04 Dose: 2 mg Loratadine (Claritin) 10 mg PO DAILY SANTOS Stop: 05/21/17 09:01 Last Admin: 04/21/17 09:34 Dose: 10 mg Metoprolol Tartrate (Lopressor) 25 mg PO BID SANTOS Stop: 05/21/17 09:01 Last Admin: 04/21/17 20:04 Dose: 25 mg Miconazole Nitrate (Rachel Antifungal) 1 appl TP TID SANTOS Stop: 05/21/17 09:01 Last Admin: 04/21/17 16:46 Dose: 1 appl Montelukast Sodium (Singulair) 10 mg PO QPM SANTOS Stop: 05/21/17 17:01 Last Admin: 04/21/17 16:47 Dose: 10 mg Multi-Ingredient Ointment (Zinc Oxide) 1 appl TP BID SANTOS Stop: 05/21/17 09:01 Last Admin: 04/21/17 20:04 Dose: 1 appl Femara 2.5 Mg 2.5 mg PO DAILY SANTOS Stop: 05/21/17 09:01 Last Admin: 04/21/17 09:35 Dose: Not Given Potassium Chloride (Klor-Con 10) 10 meq PO DAILY SANTOS Stop: 05/21/17 09:01 Last Admin: 04/21/17 09:35 Dose: 10 meq Quetiapine Fumarate (Seroquel) 25 mg PO QPM [facility] Stop: 05/21/17 17:01 Last Admin: 04/21/17 16:52 Dose: 25 mg Tramadol HCl (Ultram) 50 mg PO Q6H PRN PRN Reason: Pain Stop: 05/22/17 06:51 Last Admin: 04/22/17 07:05 Dose: 50 mg Physical Examination - Exam Vital Signs: Vital Signs - Last Taken Temp 36.6 C 04/22/17 08:39 Pulse 80 04/22/17 08:39 Resp 20 04/22/17 08:39 BP 132/75 04/22/17 08:39 Pulse Ox 96 04/22/17 08:39 O2 Oxygen Delivery Method Nasal Cannula Abdomen: Present: soft, nontender - incisional wound below umbilicus healing well except the lower portion which measure 8 x 4 x4 cm with good granulation tissue;no foul smelling discharge and no sign of infection - Results and Findings: Narrative: will continue current wound treatment using wet to dry dressing Lab/Microbiology results last 24 hrs: Abnormal/Pending Laboratory Last 24 HRS 04/22/17 04/22/17 04/21/17 06:55 00:15 18:05 Hgb 6.7 L* 7.7 L* Hct 23.4 L* 26.8 L Sodium 144 H Plasma Sodium 144 H Carbon Dioxide 37.1 H Iron TIBC Transferrin % Sat 04/21/17 04/21/17 04/21/17 12:15 05:00 05:00 Hgb 8.3 L Hct 28.1 L Sodium Plasma Sodium Carbon Dioxide Iron 13 L 12 L TIBC 245 L Transferrin % Sat 5 L Culture 04/21/17 03:55 - Final Nares MRSA Negative - Assessments/Findings (1) Postoperative wound dehiscence Problem: Acute Qualifiers: Encounter type: subsequent encounter Qualified Code(s): T81.31XD - Disruption of external operation (surgical) wound, not elsewhere classified, subsequent encounter
[2017-04-22 10:23] LABS: Hematocrit 31.6 % (37.0-47.0); Hemoglobin 9.2 gm/dL (12.5-16.0); Mean Cell Volume 93.8 fl (78-100); Mean Corpuscular Hemoglobin 27.3 pg (27-31); Mean Corpuscular Hgb Conc 29.1 g/dl (32-36); Mean Platelet Volume 9.1 fl (6.0-9.5); Neutrophil # 5.4 K/mm3 (1.3-6.0); Neutrophil % 74.4 % (42-75.0); Platelet Count 284 K/mm3 (150-450); Red Blood Count 3.37 M/mm3 (4.2-5.4); Red Cell Distribution Width 16.8 % (11.5-14.0); White Blood Count 7.3 K/mm3 (4.0-10.5)
--- NOTE | 2017-04-22 12:42 | PN ---
Subjective - Date and Time Seen Date: 04/22/17 Time: 07:55 Subjective Narrative: Pleuritic right lateral chest pain this AM. EKG ok. Also got two units of blood this AM. scored 27/30 on minimental status yesterday. Objective - Review of Systems Generalized/Overall Review: Reports: Malaise EENTM: Reports: No Symptoms Reported Respiratory: Reports: No Symptoms Reported Cardiac: Reports: Chest Pain Abdominal: Reports: No Symptoms Reported, Other - melena Genitourinary Symptoms: Reports: No Symptoms Reported Musculoskeletal Complaints: Reports: No Symptoms Reported Neurological: Reports: No Symptoms Reported Skin: Reports: No Symptoms Reported Endocrine: Reports: No Symptoms Reported Misc: All systems neg except as marked - Vitals Vitals: Last Vital Signs Selected Entries 04/22/17 04/22/17 04/22/17 05:51 06:40 07:06 Temperature 36.1 C L Temperature Temporal Artery Source Scan Pulse Rate 76 79 Respiratory 20 Rate Respiratory Normal Depth Respiratory Normal Effort Non-Labored Respiratory Normal Pattern Blood Pressure 136/74 136/74 Blood Pressure Supine Position O2 Sat by Pulse 93 Oximetry Oxygen Delivery Nasal Cannula Method Oxygen Flow 3 Rate - Abnormal Lab Findings Abnormal Lab Findings: Abnormal Lab Results 04/21/17 04/21/17 04/21/17 Range/Units 05:00 05:00 18:05 RBC (4.2-5.4) M/mm3 Hgb 7.7 L* (12.5-16.0) gm/dL Hct 26.8 L (37.0-47.0) % MCHC (32-36) g/dl RDW (11.5-14.0) % Immature Gran % (Auto) (0.001-0.429) % Immature Gran # (Auto) (0.000-0.0310) K/mm3 Lymphocytes % (20-51) % Eosinophils % (0.0-3.0) % Lymphocytes # (1.5-3.5) k/mm3 Sodium (132-142) mmol/L Plasma Sodium (130-142) mmol/L Carbon Dioxide (24-32.6) mmol/L Iron 12 L 13 L (35-120) mcg/dL TIBC 245 L (260-445) mcg/dL Transferrin % Sat 5 L (15-55) % 04/22/17 04/22/17 04/22/17 Range/Units 00:15 06:55 10:13 RBC 3.37 L (4.2-5.4) M/mm3 Hgb 6.7 L* 9.2 L (12.5-16.0) gm/dL Hct 23.4 L* 31.6 L (37.0-47.0) % MCHC 29.1 L (32-36) g/dl RDW 16.8 H (11.5-14.0) % Immature Gran % (Auto) 0.50 H (0.001-0.429) % Immature Gran # (Auto) 0.04 H (0.000-0.0310) K/mm3 Lymphocytes % 12.6 L (20-51) % Eosinophils % 3.8 H (0.0-3.0) % Lymphocytes # 0.9 L (1.5-3.5) k/mm3 Sodium 144 H (132-142) mmol/L Plasma Sodium 144 H (130-142) mmol/L Carbon Dioxide 37.1 H (24-32.6) mmol/L Iron (35-120) mcg/dL TIBC (260-445) mcg/dL Transferrin % Sat (15-55) % - Exam Constitutional: Present: Alert, Oriented x3, Cooperative, Well developed, Well nourished ENT Exam: Present: normal ENT inspection Neck: Present: normal inspection Respiratory: Present: normal breath sounds, no respiratory distress Cardiovascular/Chest: Present: regular rate, rhythm, no murmur Abdomen: Present: Normal bowel sounds, soft, nontender, nondistended, no rebound tenderness, no hepatospenomegaly, no masses, obese Extremity: Present: normal inspection. Absent: pedal edema Skin Exam: Present: normal color, warm/dry, no cyanosis Neurologic: Present: alert, oriented x 3 Appearance: Present: appropriate appearance, appropriate insight, neat, no memory impairment Eye contact: Present: cooperative, good eye contact, normal speech Thoughts: Present: normal thought pattern Assessment/Plan Plan Narrative: Check for pulmonary emboli. Otherwise, same treatment. - Problems/Diagnosis (1) Chest pain Problem: Acute (2) Anemia Problem: Acute Qualifiers: Anemia type: other cause Other causes of anemia: other cause, not classified Qualified Code(s): D64.89 - Other specified anemias (3) Anticoagulated on Coumadin Problem: Acute (4) GI bleeding Problem: Acute (5) Heme positive stool Problem: Acute (6) Postoperative wound dehiscence Problem: Acute Qualifiers: Encounter type: subsequent encounter Qualified Code(s): T81.31XD - Disruption of external operation (surgical) wound, not elsewhere classified, subsequent encounter (7) A-fib Problem: Chronic (8) COPD (chronic obstructive pulmonary disease) Problem: Chronic (9) HLD (hyperlipidemia) Problem: Chronic (10) HTN (hypertension) Problem: Chronic
[2017-04-22] MEDS: QUEtiapine FUMARATE 25 MG TABLET PO SCH (16:49)
[2017-04-22] MEDS: MONTELUKAST SODIUM 10 MG TABLET PO SCH (16:49)
[2017-04-22] MEDS: ALBUTEROL SULFATE 2.5 MG/3 ML VIAL.NEB IH PRN (18:27)
[2017-04-23] MEDS: traMADol HCL 50 MG TABLET PO PRN ×2 (02:20→08:39)
[2017-04-23 05:52] LABS: Hematocrit 28.1 % (37.0-47.0); Hemoglobin 8.2 gm/dL (12.5-16.0); Mean Corpuscular Hemoglobin 27.4 pg (27-31); Mean Corpuscular Hgb Conc 29.2 g/dl (32-36); Mean Platelet Volume 9.2 fl (6.0-9.5); NRBC# 0.1 k/mm3 (0-1); Neutrophil # 5.3 K/mm3 (1.3-6.0); Neutrophil % 67.4 % (42-75.0); Platelet Count 247 K/mm3 (150-450); Red Blood Count 2.99 M/mm3 (4.2-5.4); Red Cell Distribution Width 16.8 % (11.5-14.0); White Blood Count 7.9 K/mm3 (4.0-10.5)
[2017-04-23 06:02] LABS: Anion Gap 4.9 mmol/L (6.8-13.8); BUN/Creatinine Ratio 15.2 (9.0-21.6); Calcium * 8.5 mg/dL (7.9-10.9); Carbon Dioxide 38.1 mmol/L (24-32.6); Estimated Creat Clear 52.7
[2017-04-23] MEDS: BUDESONIDE 0.5 MG/2 ML VIAL.NEB IH SCH ×2 (06:05→19:13)
[2017-04-23] MEDS: FUROSEMIDE 80 MG TABLET PO SCH ×2 (07:06→16:51)
[2017-04-23] MEDS: METOPROLOL TARTRATE 25 MG TABLET PO SCH ×2 (08:41→20:34)
[2017-04-23] MEDS: POTASSIUM CHLORIDE 10 MEQ TABLET.SA PO SCH (08:41)
[2017-04-23] MEDS: MULTIVITAMINS 1 CAP CAPSULE PO SCH (08:42)
[2017-04-23] MEDS: FLUoxetine HCL 20 MG CAPSULE PO SCH (08:42)
[2017-04-23] MEDS: LORATADINE 10 MG TABLET PO SCH (08:42)
[2017-04-23] MEDS: CHOLECALCIFEROL 1,000 UNIT CAPSULE PO SCH (08:42)
[2017-04-23] MEDS: FEMARA 2.5 MG PO SCH (08:42)
[2017-04-23] MEDS: LOPERAMIDE 1 MG/5 ML PO SCH ×2 (08:45→20:33)
[2017-04-23] MEDS: CHOLESTYRAMINE/ASPARTAME 4 GM PACKET PO SCH ×4 (08:46→20:35)
[2017-04-23] MEDS: MICONAZOLE NITRATE APPL TP SCH ×3 (08:47→16:52)
[2017-04-23] MEDS: LIDOCAINE 35 APPL TUBE TP SCH ×4 (08:47→20:36)
[2017-04-23] MEDS: ZINC OXIDE 60 APPL TUBE TP SCH ×2 (08:48→20:36)
[2017-04-23] MEDS ORDERED: HYDROcodone/ACETAMINOPHEN 1 EACH TABLET PO PRN (13:45)
--- NOTE | 2017-04-23 14:00 | PN ---
Subjective - Date and Time Seen Date: 04/23/17 Time: 07:30 Subjective Narrative: Pleuritic right lateral chest pain still. Unable to do CT angiogram, as she is allergic to contrast dye. Unable to do VQ scan as tech not available. Ultrasound leg veins negative for DVT. EKG ok. Hgb after 2 units of blood yesterday 9.2 yesterday. 8.2 today. No fever. Will talk with Dr. Conner today by phone. No fever. Objective - Review of Systems Generalized/Overall Review: Reports: Malaise EENTM: Reports: No Symptoms Reported Respiratory: Reports: No Symptoms Reported Cardiac: Reports: Chest Pain - HPI Abdominal: Reports: No Symptoms Reported Genitourinary Symptoms: Reports: No Symptoms Reported Musculoskeletal Complaints: Reports: No Symptoms Reported Neurological: Reports: No Symptoms Reported Skin: Reports: No Symptoms Reported Endocrine: Reports: No Symptoms Reported Misc: All systems neg except as marked - Vitals Vitals: Last Vital Signs Selected Entries 04/23/17 07:29 Temperature 36.6 C Temperature Oral Source Pulse Rate 98 Respiratory 18 Rate Blood Pressure 135/75 Blood Pressure Sitting Position O2 Sat by Pulse 92 Oximetry Oxygen Delivery Nasal Cannula Method Oxygen Flow 3 Rate - Abnormal Lab Findings Abnormal Lab Findings: Abnormal Lab Results 04/23/17 04/23/17 Range/Units 05:35 05:35 RBC 2.99 L (4.2-5.4) M/mm3 Hgb 8.2 L (12.5-16.0) gm/dL Hct 28.1 L (37.0-47.0) % MCHC 29.2 L (32-36) g/dl RDW 16.8 H (11.5-14.0) % Lymphocytes % 16.6 L (20-51) % Monocytes % 10.4 H (0.0-9) % Eosinophils % 4.9 H (0.0-3.0) % Lymphocytes # 1.3 L (1.5-3.5) k/mm3 Sodium 145 H (132-142) mmol/L Plasma Sodium 145 H (130-142) mmol/L Carbon Dioxide 38.1 H (24-32.6) mmol/L Anion Gap 4.9 L (6.8-13.8) mmol/L - Exam Constitutional: Present: Alert, Oriented x3, Cooperative, Well developed, No distress, Morbidly obese ENT Exam: Present: normal ENT inspection, hearing grossly normal Neck: Present: normal inspection Respiratory: Present: normal breath sounds, no respiratory distress Cardiovascular/Chest: Present: regular rate, rhythm, no murmur Abdomen: Present: Normal bowel sounds, soft, nontender, nondistended, no rebound tenderness, no hepatospenomegaly, no masses, obese Extremity: Present: normal inspection, pedal edema Skin Exam: Present: no cyanosis, cool/dry Neurologic: Present: alert, oriented x 3 Appearance: Present: appropriate appearance, appropriate insight, neat, no memory impairment Eye contact: Present: cooperative, good eye contact, normal speech Assessment/Plan Plan Narrative: Same treatment. Call Dr. Conner. Follow labs. - Problems/Diagnosis (1) Chest pain Problem: Acute (2) Anemia Problem: Acute Qualifiers: Anemia type: other cause Other causes of anemia: other cause, not classified Qualified Code(s): D64.89 - Other specified anemias (3) Anticoagulated on Coumadin Problem: Acute (4) GI bleeding Problem: Acute (5) Heme positive stool Problem: Acute (6) Postoperative wound dehiscence Problem: Acute Qualifiers: Encounter type: subsequent encounter Qualified Code(s): T81.31XD - Disruption of external operation (surgical) wound, not elsewhere classified, subsequent encounter (7) A-fib Problem: Chronic (8) COPD (chronic obstructive pulmonary disease) Problem: Chronic (9) HLD (hyperlipidemia) Problem: Chronic (10) HTN (hypertension) Problem: Chronic
--- NOTE | 2017-04-23 14:01 | PN ---
Progess Note - Interim Narrative: 04/23/17 14:[address] Conner just now. Transfuse again if needed. See him next week in the office.
[2017-04-23] MEDS: HYDROcodone/ACETAMINOPHEN 1 EACH TABLET PO PRN (14:04)
[2017-04-23] MEDS: MONTELUKAST SODIUM 10 MG TABLET PO SCH (16:51)
[2017-04-23] MEDS: QUEtiapine FUMARATE 25 MG TABLET PO SCH (16:51)
[2017-04-23] MEDS ORDERED: WARFARIN SODIUM 6 MG TABLET PO SCH (17:00)
[2017-04-23 17:38] LABS: INR 2.12 INR (0.90-1.10)
[2017-04-24 06:07] LABS: Hematocrit 28.9 % (37.0-47.0); Hemoglobin 8.3 gm/dL (12.5-16.0); Mean Cell Volume 94.1 fl (78-100); Mean Corpuscular Hgb Conc 28.7 g/dl (32-36); Mean Platelet Volume 9.2 fl (6.0-9.5); NRBC# 0.1 k/mm3 (0-1); Neutrophil # 5.1 K/mm3 (1.3-6.0); Neutrophil % 66.9 % (42-75.0); Platelet Count 250 K/mm3 (150-450); Red Blood Count 3.07 M/mm3 (4.2-5.4); Red Cell Distribution Width 16.7 % (11.5-14.0); White Blood Count 7.6 K/mm3 (4.0-10.5)
[2017-04-24 06:15] LABS: Prothrombin Time (Patient) 21.4 Seconds (9.4-11.4)
[2017-04-24 06:16] LABS: INR 2.06 INR (0.90-1.10)
[2017-04-24 06:28] LABS: Albumin * 1.9 gm/dl (3.4-5.0); Anion Gap 5.4 mmol/L (6.8-13.8); BUN/Creatinine Ratio 15.1 (9.0-21.6); Bilirubin, Total 0.2 mg/dL (0.0-1.1); Calcium * 8.6 mg/dL (7.9-10.9); Carbon Dioxide 35.7 mmol/L (24-32.6); Potassium 4.1 mmol/L (3.4-4.6); Total Protein 6.3 gm/dL (6.2-8.2)
[2017-04-24] MEDS: FUROSEMIDE 80 MG TABLET PO SCH (06:36)
[2017-04-24] MEDS: HYDROcodone/ACETAMINOPHEN 1 EACH TABLET PO PRN (06:38)
[2017-04-24 06:39] VITALS: BP 122/60
[2017-04-24] MEDS: BUDESONIDE 0.5 MG/2 ML VIAL.NEB IH SCH (07:21)
[2017-04-24] MEDS ORDERED: CEFUROXIME AXETIL 500 MG TABLET PO SCH (09:00)
[2017-04-24] MEDS: POTASSIUM CHLORIDE 10 MEQ TABLET.SA PO SCH (09:06)
[2017-04-24] MEDS: MULTIVITAMINS 1 CAP CAPSULE PO SCH (09:06)
[2017-04-24] MEDS: FLUoxetine HCL 20 MG CAPSULE PO SCH (09:06)
[2017-04-24] MEDS: CHOLESTYRAMINE/ASPARTAME 4 GM PACKET PO SCH (09:06)
[2017-04-24] MEDS: METOPROLOL TARTRATE 25 MG TABLET PO SCH (09:06)
[2017-04-24] MEDS: CHOLECALCIFEROL 1,000 UNIT CAPSULE PO SCH (09:06)
[2017-04-24] MEDS: LORATADINE 10 MG TABLET PO SCH (09:06)
[2017-04-24] MEDS: LIDOCAINE 35 APPL TUBE TP SCH (09:07)
[2017-04-24] MEDS: MICONAZOLE NITRATE APPL TP SCH (09:08)
[2017-04-24] MEDS: LOPERAMIDE 1 MG/5 ML PO SCH (09:08)
[2017-04-24] MEDS: FEMARA 2.5 MG PO SCH (09:08)
[2017-04-24] MEDS: ZINC OXIDE 60 APPL TUBE TP SCH (09:09)
--- NOTE | 2017-04-24 09:58 | DS ---
(1) Chest pain Problem: Acute Qualifiers: Chest pain type: unspecified Qualified Code(s): R07.9 - Chest pain, unspecified (2) Anemia Problem: Chronic Qualifiers: Anemia type: other cause Other causes of anemia: acute posthemorrhagic Qualified Code(s): D62 - Acute posthemorrhagic anemia (3) Anticoagulated on Coumadin Problem: Chronic (4) GI bleeding Problem: Chronic Qualifiers: GI bleed type/associated pathology: diverticulosis Qualified Code(s): K57.91 - Diverticulosis of intestine, part unspecified, without perforation or abscess with bleeding (5) Heme positive stool Problem: Chronic (6) Postoperative wound dehiscence Problem: Acute Qualifiers: Encounter type: subsequent encounter Qualified Code(s): T81.31XD - Disruption of external operation (surgical) wound, not elsewhere classified, subsequent encounter (7) A-fib Problem: Chronic Qualifiers: Atrial fibrillation type: chronic Qualified Code(s): I48.2 - Chronic atrial fibrillation (8) COPD (chronic obstructive pulmonary disease) Problem: Chronic Qualifiers: COPD type: chronic bronchitis (9) HLD (hyperlipidemia) Problem: Chronic Qualifiers: Hyperlipidemia type: unspecified Qualified Code(s): E78.5 - Hyperlipidemia , unspecified (10) HTN (hypertension) Problem: Chronic Qualifiers: Hypertension type: essential hypertension Qualified Code(s): I10 - Essential (primary) hypertension Procedures Performed: none [facility] [facility] [place] [facility] [place] Dis[place] Activity: Activity as tolerated Discharge Diet: General/regular food Discharge Level of Care:: SNF - [facility] Therapy: Physicial Therapy, Occupation Therapy Referrals: Fabiano Alvarez MD [Primary Care Provider] - Consultation Done:: Wound Care, Dr. Mcdonough Problem Oriented Discharge Instructions to Patient/Family: Blood Transfusion, [id number] Additional Patient Instructions (free text): CBC, BMP, ProTime in 4 days Ceftin 500 mg BID for [address] Conner sometime next week Wet to dry saline gauze dressings open abdominal wound twice daily till healed. Walk in halls. Up in chair. Prescriptions (Any new or edited meds): Acetaminophen 650 mg PO QID PRN #1 tablet PRN Reason: Mild Pain Cefuroxime Axetil [Ceftin] 500 mg PO BID #7 tablet HYDROcodone/ACETAMINOPHEN [[place] 5-325] 1 each PO QID PRN #100 tablet PRN Reason: Mild Pain HYDROcodone/ACETAMINOPHEN [[place] 5-325] 2 each PO QID PRN #200 tablet PRN Reason: Moderate to severe pain Complete Home Medications List: Complete Home Medication List: Albuterol Sulfate [Albuterol Sulfate 2.5 MG/3 ML] 1 vial INH Q6H PRN 04/21/17 Allopurinol [Zyloprim] 100 mg PO BID 04/21/17 Budesonide [Pulmicort Respules] 2 ml IH BID 04/21/17 Cholecalciferol (Vitamin D3) [Vitamin D3] 2,000 unit PO DAILY 04/21/17 Cholestyramine/Aspartame [Cholestyramine Light Packet] 1 packet PO DAILY PRN FLUoxetine HCL [Fluoxetine HCl] 20 mg PO DAILY 04/21/17 Furosemide [Lasix] 80 mg PO BID 04/21/17 Letrozole [Femara] 2.5 mg PO DAILY 04/21/17 Loperamide HCl [Loperamide] 2 mg PO PRN PRN 04/21/17 Loratadine [Claritin] 10 mg PO DAILY 04/21/17 Metoprolol Tartrate [Lopressor] 25 mg PO BID 04/21/17 Miconazole Nitrate [Rachel] 1 appl TP PRN PRN 04/21/17 Miconazole Nitrate [Rachel] 1 appl TP TID 04/21/17 Montelukast Sodium [Singulair] 10 mg PO QPM 04/21/17 Multivitamin [Multivitamins] 1 each PO DAILY 04/21/17 Potassium Chloride [K-Tab ER] 10 meq PO DAILY 04/21/17 QUEtiapine FUMARATE [Seroquel] 25 mg PO QPM 04/21/17 Zinc Oxide [Perishield] 100 gm TP BID 04/21/17 Acetaminophen 650 mg PO QID PRN #1 tablet 04/24/17 Cefuroxime Axetil [Ceftin] 500 mg PO BID #7 tablet 04/24/17 HYDROcodone/ACETAMINOPHEN [[place] 5-325] 1 each PO QID PRN #100 tablet 04/24/17 HYDROcodone/ACETAMINOPHEN [[place] 5-325] 2 each PO QID PRN #200 tablet 04/24/17 Lidocaine [Lidocaine Ointment] 1 appl TP Q4HWA tube 04/24/17 Warfarin Sodium [Coumadin] 6 mg PO DAILY@1700 tablet 04/24/17
== END 2017-04-24 11:30 | DRG 378 ==
LOC: ER 00:09 → MS 02:13 → OBSVTOIN 04-22 14:22
PROVIDERS: ADMIT Nurse Practitioner; ATTEND Allergy & Immunology
PROC: 0T9B7ZZ Drainage of Bladder, Via Natural or Artificial Opening (ICD-10-PCS; principal; 2017-04-21)
PROC: 30263N1 (ICD-10-PCS; 2017-04-22)
DX: K57.91 Diverticulosis of intestine, part unspecified, without perforation or abscess with bleeding (principal); D62 Acute posthemorrhagic anemia; R07.89 Other chest pain; T81.31XD Disruption of external operation (surgical) wound, not elsewhere classified, subsequent encounter; I48.2 Chronic atrial fibrillation; I10 Essential (primary) hypertension; E78.5 Hyperlipidemia, unspecified; Z91.14 Patient's other noncompliance with medication regimen; Z79.01 Long term (current) use of anticoagulants; Z85.3 Personal history of malignant neoplasm of breast; Z98.0 Intestinal bypass and anastomosis status
CPT/HCPCS: 36415; 51701; 71020; 80048; 80053; 81001; 82272; 83540; 83550; 83690; 83880; 84484; 85014; 85018; 85025; 85610; 86140; 86850; 86900; 87081; 93005; 93970; 94640; 94660; 97110; 97116; 97161; 97165; 97530; 97535; 99284; G0378; G8978; G8979; G8980; G8987; G8988; G8989; P9016

== ENCOUNTER 2017-04-28 12:46 | Inpatient (IN) | payer MEDICARE, OTHER ==
[2017-04-28] MEDS ORDERED: NORMAL SALINE 1,000 ML IV ONE ×3 (12:54→20:39)
[2017-04-28 13:06] LABS: Urine Bilirubin Negative (NEGATIVE); Urine Blood Negative /ul (NEGATIVE); Urine Ketone Negative (NEGATIVE); Urine Nitrite Negative (NEGATIVE); Urine Protein Negative (NEGATIVE); Urine Specific Gravity >=1.030 SP.GR. (1.005-1.010); Urine Urobilinogen Normal (NORMAL)
[2017-04-28 13:14] LABS: Hemoglobin 9.3 gm/dL (12.5-16.0); Mean Cell Volume 95.4 fl (78-100); Mean Corpuscular Hemoglobin 26.9 pg (27-31); Mean Corpuscular Hgb Conc 28.2 g/dl (32-36); Mean Platelet Volume 9.8 fl (6.0-9.5); NRBC# 0.2 k/mm3 (0-1); Neutrophil # 8.4 K/mm3 (1.3-6.0); Platelet Count 273 K/mm3 (150-450); Red Blood Count 3.46 M/mm3 (4.2-5.4); Red Cell Distribution Width 17.1 % (11.5-14.0); White Blood Count 10.5 K/mm3 (4.0-10.5)
[2017-04-28 13:18] LABS: Urine Appearance Clear; Urine Bacteria None Seen; Urine Color Yellow; Urine RBC None Seen /hpf (0-5); Urine WBC None Seen /hpf (0-5)
--- NOTE | 2017-04-28 13:34 | ERNOTE ---
Neuro HPI ER Record Time Seen by Provider: 04/28/17 12:46 Source: family, long-term records, past records Exam Limitations: clinical condition Immunizations: IMMUNIZATION HX Immunizations Up to Date Yes History of Influenza Vaccine Yes Hx Pneumococcal Vaccination Yes Allergies/Adverse Reactions: Allergies Allergy/AdvReac Type Severity Reaction Status Date / Time gentamicin [Gentamicin] Allergy Verified 04/28/17 16:42 levofloxacin Allergy Swelling Verified 04/28/17 16:42 of Tongue Penicillins Allergy Hives Verified 04/28/17 16:42 DANICA Inhibitors AdvReac Unknown Verified 04/28/17 16:42 Sulfa (Sulfonamide AdvReac Unknown Verified 04/28/17 16:42 Antibiotics) terazosin AdvReac Unknown Verified 04/28/17 16:42 adhesive AdvReac Verified 04/28/17 16:42 Iodinated Contrast Media - AdvReac Other Verified 04/28/17 16:42 Oral and lidocaine AdvReac Headache Verified 04/28/17 16:42 NSAIDS (Non-Steroidal AdvReac Other Verified 04/28/17 16:42 Anti-Inflamma oxycodone AdvReac Pain Verified 04/28/17 16:42 Home Medications: HOME MEDICATIONS Albuterol Sulfate [Albuterol Sulfate 2.5 MG/3 ML] 1 vial INH Q6H PRN 04/21/17 [ Last Taken Unknown] Allopurinol [Zyloprim] 100 mg PO BID 04/21/17 [Last Taken Unknown] Budesonide [Pulmicort Respules] 2 ml IH BID 04/21/17 [Last Taken Unknown] Cholecalciferol (Vitamin D3) [Vitamin D3] 2,000 unit PO DAILY 04/21/17 [Last Taken Unknown] Cholestyramine/Aspartame [Cholestyramine Light Packet] 1 packet PO DAILY PRN [Last Taken Unknown] FLUoxetine HCL [Fluoxetine HCl] 20 mg PO DAILY 04/21/17 [Last Taken Unknown] Furosemide [Lasix] 80 mg PO BID 04/21/17 [Last Taken Unknown] Letrozole [Femara] 2.5 mg PO DAILY 04/21/17 [Last Taken Unknown] Loperamide HCl [Loperamide] 2 mg PO PRN PRN 04/21/17 [Last Taken Unknown] Loratadine [Claritin] 10 mg PO DAILY 04/21/17 [Last Taken Unknown] Metoprolol Tartrate [Lopressor] 25 mg PO BID 04/21/17 [Last Taken Unknown] Miconazole Nitrate [Rachel] 1 appl TP PRN PRN 04/21/17 [Last Taken Unknown] Miconazole Nitrate [Rachel] 1 appl TP TID 04/21/17 [Last Taken Unknown] Montelukast Sodium [Singulair] 10 mg PO QPM 04/21/17 [Last Taken Unknown] Multivitamin [Multivitamins] 1 each PO DAILY 04/21/17 [Last Taken Unknown] Potassium Chloride [K-Tab ER] 10 meq PO DAILY 04/21/17 [Last Taken Unknown] QUEtiapine FUMARATE [Seroquel] 25 mg PO QPM 04/21/17 [Last Taken Unknown] Zinc Oxide [Perishield] 100 gm TP BID 04/21/17 [Last Taken Unknown] Acetaminophen 650 mg PO QID PRN #1 tablet 04/24/17 [Last Taken Unknown] Cefuroxime Axetil [Ceftin] 500 mg PO BID #7 tablet 04/24/17 [Last Taken Unknown] HYDROcodone/ACETAMINOPHEN [[place] 5-325] 1 each PO QID PRN #100 tablet 04/24/17 [ Last Taken Unknown] HYDROcodone/ACETAMINOPHEN [[place] 5-325] 2 each PO QID PRN #200 tablet 04/24/17 [ Last Taken Unknown] Lidocaine [Lidocaine Ointment] 1 appl TP Q4HWA tube 04/24/17 [Last Taken Unknown] Warfarin Sodium [Coumadin] 6 mg PO DAILY@1700 tablet 04/24/17 [Last Taken Unknown] - History of Present Illness Narrative: Patient is coming from the long-term for being unresponsive and having decreased O2 saturations. Patient was diagnosed with a diverticular bleed on 03/21. Due to uncontrolled bleeding patient she had a partial colon resection at [facility] on 03/27. Due to wound dehiscence she was started on ceftin 04/18. She was admitted 04/21-04/24 for recurrent GI bleed and transfused. She has a history of COPD and KAVON, is supposed to be on CPAP at night but isn't always compliant. Per long-term staff she was her normal self this morning. When the staff checked on her around noon she was unresponsive with decreased O2 saturation and low blood pressures Date (Duration): 06/26/17 Time (Timing): 12:00 Review of Systems - Narrative Narrative: unable to obtain - Patient's Past Medical History Patient History - Medical: Anxiety, Depression, Obesity, Renal Disease, Other Patient History - Cardiac/Respiratory: Atrial Fibrillation, Asthma, Cardiac Arrest, Coronary Heart Disease, COPD, Deep Vein Thrombosis, Hypertension, Sleep Apnea, Other Patient History - Cancer: Breast Patient History - Surgical Procedures: Appendectomy, Cancer Surgery, Cholecystectomy, Colon Resection, Colonoscopy, Hysterectomy, Total Knee Replacement, Other Patient History - Other: None - Family History Father Family History - Medical: Family History - Cardiac/Respiratory: Atrial Fibrillation Mother Family History - Medical: , Diabetes Type 2 - Social History Living Situations: long-term Abuse History: No History of abuse Psych History: Hx of Anxiety, Hx of Depression Have you smoked in the past 12 months: No Do you dip or chew tobacco: No Alcohol Use: none Drug Use: none - Immunizations Immunizations Up to Date: Yes Hx Pneumococcal Vaccination: Yes History of Influenza Vaccine: Yes Physical Exam - Physical Exam General Appearance: Present: no apparent distress, lethargic - responds to pain only, obese Eye Exam: Normal inspection: bilateral, PERRL: bilateral Ears, Nose, Throat: Present: normal pharynx Respiratory: Present: no respiratory distress, no accessory muscle use, lungs clear Cardiovascular/Chest: Present: regular rate, rhythm, no murmur Gastrointestinal/Abdominal: Present: nondistended, soft, other - well healing scar in midline, area of dehiscence is clean, no erythema, no drainage, area of induration around scar, no echymosis Neurological Exam: Present: other - responds to pain only, seems to move all extremities Skin Exam: Present: normal color, warm/dry ED Progress - Results and Orders Patient's Lab Results:: I have reviewed the patient's lab results. - also reveiwed labs drawn earlier this morning - Vital Signs Patient's Vital Signs:: I have reviewed the patient's vital signs. Vital Signs: Vital Signs 04/28/17 04/28/17 12:47 12:54 Temperature 36.0 C L Pulse Rate 92 103 H Respiratory 15 17 Rate Blood Pressure 86/30 108/37 O2 Sat by Pulse 79 L 88 L Oximetry - EKG EKG: atrial fibrillation, unchanged from - 04/22/2017, other - low voltage EKG read: Interp. by me - X-Ray X-Ray #1 X-Ray: chest - mild CHF, chronic changes Interpretation: Reviewed by me - Progress/Reassessment Chief Complaint: Altered Mental Status Progress Note-Subjective: 04/28/17 13:36 initial O2sats in 80's on 2liters, with non rebreather 92-93% patient remains responsive to pain only 04/28/17 13:51 discussed results with daughter, low blood pressure and LA suspicious for sepsis , will treat with dose of rocephin (fluids already started) per daughter patient is DNR and does not want to be intubated, has tolerated CPAP in the past, discussed need for respiratory support as pCO2 80 and pH 7.17 04/28/17 14:57 patient comfortable, good airmovement on CPAP,maintaining O2 sat in low 90's on 50%O2 04/28/17 15:16 pH trending up 7.21, CO2 down 73 04/28/17 15:[address] Bowens,okay to admit 04/28/17 15:27 discussed improved labs and plan to admit with family Departure Clinical Impression: Acute and chronic respiratory failure Qualifiers: Respiratory failure complication: hypoxia and hypercapnia Qualified Code(s): J96.21 - Acute and chronic respiratory failure with hypoxia Sepsis Qualifiers: Sepsis type: sepsis due to unspecified organism Qualified Code(s): A41.9 - Sepsis, unspecified organism - Departure Disposition: [facility] Condition: Fair
[2017-04-28] MEDS: NORMAL SALINE 1,000 ML IV PRN ×2 (14:15→19:25)
[2017-04-28] MEDS ORDERED: ACETAMINOPHEN 325 MG TABLET PO PRN (17:19)
[2017-04-28] MEDS ORDERED: MICONAZOLE NITRATE 85 APPL BTL TP PRN (17:45)
[2017-04-28] MEDS: MICONAZOLE NITRATE 85 APPL BTL TP SCH (18:38)
--- NOTE | 2017-04-28 19:07 | HP ---
Chief Complaint - Chief Complaint Date of Service: 04/28/17 Time of Service: 18:59 Chief Complaint: Obtunded History of Present Illness: This is a 76 y/o woman, temporarily rehabbing at a correction, who presented by ambulance today unresponsive at the [facility] ER. She was found to be hypoxemic and hypercarbic. In the middle of March she had a severe diverticular bleed, treated at [facility] in [place] with a partial colon resection, complicated by cardiac arrest, from which she was revived. She then had a wound seperation, not severe, which is healing. She has had a slow oozing of blood from her lower bowel, but this has not been dramatic. She has chronic atrial fibrillation, and takes coumadin. She has chronic musculoskeletal pain and has been taking Midkiff. She also has COPD and KAVON, but has been poorly compliant with her CPAP. Per correction staff she was her normal self this morning, but around noon today she was obtunded with low O2 sat and hypotension. She was given BIPAP and fluid support in the ER, with good response. Selected Entries 04/24/17 04/24/17 04/28/17 07:46 09:06 12:47 Temperature 36.6 C 36.0 C L Pulse Rate 92 Respiratory 15 Rate Blood Pressure 122/60 86/30 O2 Sat by Pulse 79 L Oximetry Oxygen Flow Rate 04/28/17 04/28/17 04/28/17 12:54 13:25 13:37 Temperature Pulse Rate 103 H 79 98 Respiratory 17 Rate Blood Pressure 73/40 O2 Sat by Pulse 88 L 94 Oximetry Oxygen Flow 10 10 Rate 04/28/17 04/28/17 04/28/17 13:49 15:09 18:15 Temperature Pulse Rate 94 75 Respiratory Rate Blood Pressure 79/50 O2 Sat by Pulse Oximetry Oxygen Flow Rate 04/28/17 04/28/17 04/28/17 18:30 18:34 18:57 Temperature Pulse Rate 69 70 Respiratory Rate Blood Pressure 83/48 88/46 107/57 O2 Sat by Pulse 93 90 94 Oximetry Oxygen Flow 50 50 Rate 04/28/17 19:09 Temperature Pulse Rate Respiratory 16 Rate Blood Pressure 107/57 O2 Sat by Pulse 94 Oximetry Oxygen Flow 50 Rate Laboratory Tests 04/28/17 04/28/17 04/28/17 12:50 12:50 12:50 pCO2 pO2 HCO3 Total CO2 ABG O2 Sat (Measured) Lactic Acid, Venous 3.3 H* Troponin I Less than 0.017 B-Natriuretic Peptide 42538 H Procalcitonin 04/28/17 04/28/17 04/28/17 12:55 14:00 14:43 pCO2 80.0 H* 73.0 H* pO2 75.9 L 84.3 HCO3 29.1 H 29.0 H Total CO2 31.5 H 31.2 H ABG O2 Sat (Measured) 90.8 L 93.8 L Lactic Acid, Venous Troponin I B-Natriuretic Peptide Procalcitonin 1.28 H 04/28/17 15:55 pCO2 pO2 HCO3 Total CO2 ABG O2 Sat (Measured) Lactic Acid, Venous 1.5 Troponin I B-Natriuretic Peptide Procalcitonin - Patient's Past Medical History Patient History - Medical: Anxiety, Depression, Obesity, Renal Disease Patient History - Cardiac/Respiratory: Atrial Fibrillation, Asthma, Cardiac Arrest, Coronary Heart Disease, COPD, Deep Vein Thrombosis, Hypertension, Sleep Apnea, Other Patient History - Cancer: Breast Patient History - Surgical Procedures: Appendectomy, Cancer Surgery, Cholecystectomy, Colon Resection, Colonoscopy, Hysterectomy, Total Knee Replacement, Other Patient History - Other: None - Family History Father Family History - Medical: Family History - Cardiac/Respiratory: Atrial Fibrillation Mother Family History - Medical: , Diabetes Type 2 - Social History Living Situations: correction Abuse History: No History of abuse Psych History: Hx of Anxiety, Hx of Depression Smoking Status: Former smoker Have you smoked in the past 12 months: No Do you dip or chew tobacco: No Patient requests Smoking Cessation Consult: No Initiate information on Smoking Cessation: No Alcohol Use: none Drug Use: none - Immunizations Immunizations Up to Date: Yes Hx Pneumococcal Vaccination: Yes History of Influenza Vaccine: Yes Review Of Systems (GEN) - Review of Systems Generalized/Overall Review: Present: No Symptoms Reported - obtunded, can't provide Immunizations: IMMUNIZATION HX Immunizations Up to Date Yes History of Influenza Vaccine Yes Hx Pneumococcal Vaccination Yes Allergies/Adverse Reactions: Allergies Allergy/AdvReac Type Severity Reaction Status Date / Time gentamicin [Gentamicin] Allergy Verified 04/28/17 16:42 levofloxacin Allergy Swelling Verified 04/28/17 16:42 of Tongue Penicillins Allergy Hives Verified 04/28/17 16:42 DANICA Inhibitors AdvReac Unknown Verified 04/28/17 16:42 Sulfa (Sulfonamide AdvReac Unknown Verified 04/28/17 16:42 Antibiotics) terazosin AdvReac Unknown Verified 04/28/17 16:42 adhesive AdvReac Verified 04/28/17 16:42 Iodinated Contrast Media - AdvReac Other Verified 04/28/17 16:42 Oral and lidocaine AdvReac Headache Verified 04/28/17 16:42 NSAIDS (Non-Steroidal AdvReac Other Verified 04/28/17 16:42 Anti-Inflamma oxycodone AdvReac Pain Verified 04/28/17 16:42 Home Medications: HOME MEDICATIONS Albuterol Sulfate [Albuterol Sulfate 2.5 MG/3 ML] 1 vial INH Q6H PRN 04/21/17 [ Last Taken Unknown] Allopurinol [Zyloprim] 100 mg PO 0700,1600 04/21/17 [Last Taken Unknown] Budesonide [Pulmicort Respules] 2 ml IH BID 04/21/17 [Last Taken Unknown] Cholecalciferol (Vitamin D3) [Vitamin D3] 2,000 unit PO DAILY 04/21/17 [Last Taken Unknown] Cholestyramine/Aspartame [Cholestyramine Light Packet] 1 packet PO DAILY PRN [Last Taken Unknown] FLUoxetine HCL [Fluoxetine HCl] 20 mg PO DAILY 04/21/17 [Last Taken Unknown] Furosemide [Lasix] 80 mg PO 0700,1100 04/21/17 [Last Taken Unknown] Letrozole [Femara] 2.5 mg PO DAILY 04/21/17 [Last Taken Unknown] Loperamide HCl [Loperamide] 2 mg PO 0700,1100,1600,2000 04/21/17 [Last Taken Unknown] Loratadine [Claritin] 10 mg PO DAILY 04/21/17 [Last Taken Unknown] Metoprolol Tartrate [Lopressor] 25 mg PO BID 04/21/17 [Last Taken Unknown] Miconazole Nitrate [Rachel] 1 appl TP PRN PRN 04/21/17 [Last Taken Unknown] Miconazole Nitrate [Rachel] 1 appl TP TID 04/21/17 [Last Taken Unknown] Montelukast Sodium [Singulair] 10 mg PO QPM 04/21/17 [Last Taken Unknown] Multivitamin [Multivitamins] 1 each PO DAILY 04/21/17 [Last Taken Unknown] Potassium Chloride [K-Tab ER] 10 meq PO DAILY 04/21/17 [Last Taken Unknown] QUEtiapine FUMARATE [Seroquel] 25 mg PO QPM 04/21/17 [Last Taken Unknown] Zinc Oxide [Perishield] 100 gm TP BID 04/21/17 [Last Taken Unknown] Acetaminophen 650 mg PO QID PRN #1 tablet 04/24/17 [Last Taken Unknown] Cefuroxime Axetil [Ceftin] 500 mg PO BID #7 tablet 04/24/17 [Last Taken Unknown] HYDROcodone/ACETAMINOPHEN [Midkiff 5-325] 1 each PO QID PRN #100 tablet 04/24/17 [ Last Taken Unknown] HYDROcodone/ACETAMINOPHEN [Midkiff 5-325] 2 each PO QID PRN #200 tablet 04/24/17 [ Last Taken Unknown] Lidocaine [Lidocaine Ointment] 1 appl TP Q4HWA tube 04/24/17 [Last Taken Unknown] Warfarin Sodium [Coumadin] 6 mg PO DAILY@1700 tablet 04/24/17 [Last Taken Unknown] Exam - Exam Vital Signs: Vital Signs - Last Taken Selected Entries 04/28/17 19:09 Temperature 36.6 C Temperature Temporal Artery Source Scan Pulse Rate 76 Respiratory 16 Rate Blood Pressure 107/57 O2 Sat by Pulse 94 Oximetry Oxygen Delivery Bi-pap Method Oxygen Flow 50 Rate Constitutional: Present: Well developed, Obtunded, Morbidly obese ENT Exam: Present: normal ENT inspection Eye Exam: bilateral eye: normal inspection, PERRL, EOMI Neck: Present: normal inspection Back Exam: Present: normal inspection Respiratory: Present: lungs clear, decreased breath sounds Cardiovascular/Chest: Present: no murmur, irregularly irregular Abdomen: Present: Normal bowel sounds, soft, nontender, nondistended, no rebound tenderness, no hepatospenomegaly, no masses, obese, other - open non infected lateral wound Extremity: Present: pedal edema Skin Exam: Present: no cyanosis, cool/dry Neurologic: Present: other - obtunded Appearance: Present: appropriate appearance, neat Diagnostic Studies: Laboratory Results WBC 10.5 K/mm3 (4.0-10.5) 04/28/17 12:50 RBC 3.46 M/mm3 (4.2-5.4) L 04/28/17 12:50 Hgb 9.3 gm/dL (12.5-16.0) L 04/28/17 12:50 Hct 33.0 % (37.0-47.0) L 04/28/17 12:50 MCV 95.4 fl (78-100) 04/28/17 12:50 MCH 26.9 pg (27-31) L 04/28/17 12:50 MCHC 28.2 g/dl (32-36) L 04/28/17 12:50 RDW 17.1 % (11.5-14.0) H 04/28/17 12:50 Plt Count 273 K/mm3 (150-450) 04/28/17 12:50 MPV 9.8 fl (6.0-9.5) H 04/28/17 12:50 Immature Gran % (Auto) 0.70 % (0.001-0.429) H 04/28/17 12:50 Immature Gran # (Auto) 0.07 K/mm3 (0.000-0.0310) H 04/28/17 12:50 Neutrophils % 80.0 % (42-75.0) H 04/28/17 12:50 Lymphocytes % 10.4 % (20-51) L 04/28/17 12:50 Monocytes % 7.6 % (0.0-9) 04/28/17 12:50 Eosinophils % 1.1 % (0.0-3.0) 04/28/17 12:50 Basophils % 0.2 % (0.0-1.0) 04/28/17 12:50 Nucleated RBC % 0.2 k/mm3 (0-1) 04/28/17 12:50 Neutrophils # 8.4 K/mm3 (1.3-6.0) H 04/28/17 12:50 Lymphocytes # 1.1 k/mm3 (1.5-3.5) L 04/28/17 12:50 Monocytes # 0.8 k/mm3 (0.0-1.0) 04/28/17 12:50 Eosinophils # 0.1 k/mm3 (0.0-0.7) 04/28/17 12:50 Absolute Basophils 0.0 k/mm3 (0.0-0.1) 04/28/17 12:50 pCO2 73.0 mmHg (32.0-45.0) H* 04/28/17 14:43 pO2 84.3 mmHg (83.0-108.0) 04/28/17 14:43 HCO3 29.0 mmol/L (21.0-28.0) H 04/28/17 14:43 Total CO2 31.2 mmol/L (19.0-24.0) H 04/28/17 14:43 Base Excess 0.3 mmol/L (-2.0-3.0) 04/28/17 14:43 ABG pH 7.22 (7.35-7.45) L 04/28/17 14:43 ABG O2 Sat (Measured) 93.8 % (94.0-98.0) L 04/28/17 14:43 Lactic Acid, Venous 1.5 mmol/L (0.4-1.9) 04/28/17 15:55 Troponin I Less than 0.017 ng/ml (0.00-0.10) 04/28/17 12:50 B-Natriuretic Peptide 79202 pg/mL (5-550) H 04/28/17 12:50 Procalcitonin 1.28 ng/mL (0.05-0.50) H 04/28/17 14:00 Urine Color Yellow 04/28/17 13:00 Urine Appearance Clear 04/28/17 13:00 Urine pH 5.0 pH (5.0-7.0) 04/28/17 13:00 Ur Specific [place] >=1.030 SP.GR. (1.005-1.010) 04/28/17 13:00 Urine Protein Negative mg/dL (NEGATIVE) 04/28/17 13:00 Urine Glucose (UA) Negative mg/dL (NEGATIVE) 04/28/17 13:00 Urine Ketones Negative mg/dL (NEGATIVE) 04/28/17 13:00 Urine Blood Negative /ul (NEGATIVE) 04/28/17 13:00 Urine Nitrate Negative (NEGATIVE) 04/28/17 13:00 Urine Bilirubin Negative mg/dl (NEGATIVE) 04/28/17 13:00 Urine Urobilinogen Normal EU/dl (NORMAL) 04/28/17 13:00 Ur Leukocyte Esterase Negative /ul (NEGATIVE) 04/28/17 13:00 Urine RBC None seen /hpf (0-5) 04/28/17 13:00 Urine WBC None seen /hpf (0-5) 04/28/17 13:00 Ur Epithelial Cells None seen /hpf (0-5) 04/28/17 13:00 Urine Bacteria None seen (NONE) 04/28/17 13:00 Urine Culture Comments Culture to follow 04/28/17 13:00 Assessment/Plan - Narrative Narrative: Antibiotics. Await cultures. Support breathing. Follow hemoccults. Follow labs. Stop lasix for now. Estimate stay of 5 days. Stop any sedating medications. - Assessment/Plan (1) Acute and chronic respiratory failure Problem: Acute Qualifiers: Respiratory failure complication: hypoxia and hypercapnia Qualified Code(s) : J96.21 - Acute and chronic respiratory failure with hypoxia; J96.22 - Acute and chronic respiratory failure with hypercapnia (2) Postoperative wound dehiscence Problem: Acute Qualifiers: Encounter type: subsequent encounter Qualified Code(s): T81.31XD - Disruption of external operation (surgical) wound, not elsewhere classified, subsequent encounter (3) A-fib Problem: Chronic Qualifiers: Atrial fibrillation type: chronic Qualified Code(s): I48.2 - Chronic atrial fibrillation (4) Anemia Problem: Chronic Qualifiers: Anemia type: other cause Other causes of anemia: acute posthemorrhagic Qualified Code(s): D62 - Acute posthemorrhagic anemia (5) Anticoagulated on Coumadin Problem: Chronic (6) COPD (chronic obstructive pulmonary disease) Problem: Chronic Qualifiers: COPD type: chronic bronchitis (7) GI bleeding Problem: Chronic Qualifiers: GI bleed type/associated pathology: diverticulosis Qualified Code(s): K57.91 - Diverticulosis of intestine, part unspecified, without perforation or abscess with bleeding (8) HLD (hyperlipidemia) Problem: Chronic Qualifiers: Hyperlipidemia type: unspecified Qualified Code(s): E78.5 - Hyperlipidemia , unspecified (9) HTN (hypertension) Problem: Chronic Qualifiers: Hypertension type: essential hypertension Qualified Code(s): I10 - Essential (primary) hypertension
[2017-04-28] MEDS ORDERED: LIDOCAINE 5 APPL TUBE TP PRN (19:10)
[2017-04-28] MEDS: ACETAMINOPHEN 160 MG/5 ML BTL PO PRN (19:31)
[2017-04-28] MEDS: BUDESONIDE 0.5 MG/2 ML VIAL.NEB IH SCH (19:59)
[2017-04-28] MEDS: ZINC OXIDE 60 APPL TUBE TP SCH (20:22)
[2017-04-28] MEDS: METOPROLOL TARTRATE 25 MG TABLET PO SCH (20:22)
[2017-04-28] MEDS ORDERED: NOREPINEPHRINE BITARTRATE 4 MG in DEXTROSE 5 % IN WATER 496 ML IV PRN ×2 (20:39)
[2017-04-28] MEDS ORDERED: FUROSEMIDE 80 MG TABLET PO SCH (21:00)
[2017-04-28] MEDS ORDERED: LIDOCAINE 35 APPL TUBE TP SCH (21:00)
[2017-04-28] MEDS: PANTOPRAZOLE SODIUM 40 MG in NORMAL SALINE 100 ML IV SCH (21:06)
[2017-04-28 21:12] LABS: Hematocrit 29.6 % (37.0-47.0); Hemoglobin 8.5 gm/dL (12.5-16.0); Mean Cell Volume 95.8 fl (78-100); Mean Corpuscular Hemoglobin 27.5 pg (27-31); Mean Corpuscular Hgb Conc 28.7 g/dl (32-36); NRBC# 0.2 k/mm3 (0-1); Neutrophil # 8.8 K/mm3 (1.3-6.0); Neutrophil % 78.7 % (42-75.0); Platelet Count 272 K/mm3 (150-450); Red Blood Count 3.09 M/mm3 (4.2-5.4); Red Cell Distribution Width 17.1 % (11.5-14.0); White Blood Count 11.2 K/mm3 (4.0-10.5)
[2017-04-28] MEDS ORDERED: FUROSEMIDE 10 MG/ML VIAL IV ONE (21:21)
[2017-04-28 21:24] LABS: Prothrombin Time (Patient) 24.8 Seconds (9.4-11.4)
[2017-04-28] MEDS ORDERED: FUROSEMIDE 10 MG/ML VIAL ONE (21:26)
[2017-04-28 21:27] LABS: INR 2.38 INR (0.90-1.10); Partial Thrombolplastin Time 39.9 Seconds (24-32)
[2017-04-28 21:39] LABS: Anion Gap 10.2 mmol/L (6.8-13.8); BUN/Creatinine Ratio 16.8 (9.0-21.6); Bilirubin, Total 0.2 mg/dL (0.0-1.1); Ca. Corrected For Albumin 9.6 mg/dL (8.4-10.2); Calcium * 8.3 mg/dL (7.9-10.9); Potassium 5.2 mmol/L (3.4-4.6); Total Protein 6.2 gm/dL (6.2-8.2)
--- NOTE | 2017-04-28 22:31 | PN ---
Addendum entered and electronically signed by Tawny Whatley ARNP 04/29/17 01: 27: since first dose of lasix (approx 4 hours ago) pt has had out 29 ml of urine. spicer was flushed by rn to ensure patency. patient home med dose of lasix is 80 po bid. current bp 116/72, hr 77, sats 91% on 50% bipap (16/8). additional dose of lasix 80 mg iv x1 ordered. sg Original Note: <Tawny Whatley - Last Filed: 04/28/17 22:36> Progess Note - Interim Narrative: 04/28/17 22:19 At 2050 tonight, pt's bp dropped to 65/49. ordered another 1 liter bolus x1. went to check on patient. sats then start to drop to 88-90% on 50% bipap. 5 ml urine output since start of the shift. due to acute change in pt, labs reordered and chest xray ordered to get a new baseline on where patient is at clinically. last labs drawn at 1230 today. labs as follow: hgb 9.3-->8.5 hct 33.0-->29.6 wbc 10.5-->11.2 K+ 4.9 -->5.2 CO2 36.2 --> 34 BUN 32 --> 36 Cr 1.90 --> 2.14 Lactic acid 3.3-->1.5-->1.4 Patient currently on rocephin iv. has abdomen wound that has opened post surgery at [facility]. culture obtained from drainage of abdominal wound. Chest xray shows significantly worsening CHF (white out appearance has worsened on both left and right lungs). Thus, 1L NS bolus was stopped after 500 ml and lasix 40 mg iv was ordered x1. drop in hgb also noticed. patient has a history of bleeding diverticuli. will monitor h/h with serial h/h overnight. hourly urine outputs ordered. dr hammer update on pt condition. sg <Fabiano Alvarez - Last Filed: 04/29/17 08:44> Progess Note - Interim Narrative: 04/29/17 08:43 Infection unlikely. Most likely respiratory with cardiac component. I directed our nurse practitioner hospitalist care for this patient.
[2017-04-29] MEDS: NORMAL SALINE 1,000 ML IV PRN (00:49)
[2017-04-29 01:22] LABS: Hematocrit 29.6 % (37.0-47.0); Hemoglobin 8.3 gm/dL (12.5-16.0)
[2017-04-29] MEDS ORDERED: FUROSEMIDE 10 MG/ML VIAL ONE (01:26)
[2017-04-29] MEDS ORDERED: FUROSEMIDE 10 MG/ML VIAL IV ONE (01:27)
[2017-04-29] MEDS ORDERED: diphenhydrAMINE HCL 50 MG/ML VIAL IV ONE ×2 (02:10→06:35)
[2017-04-29] MEDS: AZITHROMYCIN 500 MG in DEXTROSE 5 % IN WATER 250 ML IV SCH ×2 (05:05)
[2017-04-29 05:19] LABS: Hematocrit 29.2 % (37.0-47.0); Hemoglobin 8.3 gm/dL (12.5-16.0); Mean Cell Volume 94.8 fl (78-100); Mean Corpuscular Hemoglobin 26.9 pg (27-31); Mean Corpuscular Hgb Conc 28.4 g/dl (32-36); Mean Platelet Volume 9.7 fl (6.0-9.5); NRBC# 0.1 k/mm3 (0-1); Neutrophil # 7.6 K/mm3 (1.3-6.0); Neutrophil % 75.6 % (42-75.0); Platelet Count 272 K/mm3 (150-450); Red Blood Count 3.08 M/mm3 (4.2-5.4)
[2017-04-29 05:29] LABS: Albumin * 1.9 gm/dl (3.4-5.0); BUN/Creatinine Ratio 15.2 (9.0-21.6); Bilirubin, Total 0.3 mg/dL (0.0-1.1); Ca. Corrected For Albumin 9.8 mg/dL (8.4-10.2); Calcium * 8.4 mg/dL (7.9-10.9); Carbon Dioxide 33.8 mmol/L (24-32.6); Potassium 4.8 mmol/L (3.4-4.6); Total Protein 6.6 gm/dL (6.2-8.2)
[2017-04-29] MEDS: BUDESONIDE 0.5 MG/2 ML VIAL.NEB IH SCH ×2 (06:09→18:11)
--- NOTE | 2017-04-29 06:13 | PN ---
<Tawny Whatley - Last Filed: 04/29/17 05:42> Subjective - Date and Time Seen Date: 04/29/17 Time: 05:42 Subjective Narrative: restless at times. bp low at beginning of night but seems to have stabilized off at sbp 100-105. chest xray done last night due to acute change shows worsening "white-out" condition. sats 88-94% on 50% bipap (18/06). was off bipap last night for a drink of water and O2 sats quickly dropped into the mid to low 70% on RA. at one point overnight was fighting bipap and very restless in bed - benadryl given to calm pt and make pt more comfortable. Objective - Review of Systems Generalized/Overall Review: Reports: No Symptoms Reported - unable to obtain ROS due to patient's condition. - Vitals Vitals: Last Vital Signs Temp 36.9 C 04/29/17 01:03 Pulse 80 04/29/17 05:00 Resp 20 04/29/17 05:00 BP 151/75 04/29/17 05:00 Pulse Ox 92 04/29/17 05:00 - Abnormal Lab Findings Abnormal Lab Findings: Abnormal Lab Results 04/28/17 04/28/17 04/28/17 Range/Units 17:16 20:45 21:05 WBC 11.2 H (4.0-10.5) K/mm3 RBC 3.09 L (4.2-5.4) M/mm3 Hgb 8.5 L (12.5-16.0) gm/dL Hct 29.6 L (37.0-47.0) % MCH (27-31) pg MCHC 28.7 L (32-36) g/dl RDW 17.1 H (11.5-14.0) % MPV 10.0 H (6.0-9.5) fl Immature Gran % (Auto) 0.50 H (0.001-0.429) % Immature Gran # (Auto) 0.06 H (0.000-0.0310) K/mm3 Neutrophils % 78.7 H (42-75.0) % Lymphocytes % 13.2 L (20-51) % Neutrophils # 8.8 H (1.3-6.0) K/mm3 Lymphocytes # (1.5-3.5) k/mm3 PT (9.4-11.4) Seconds INR (Anticoag Therapy) (0.90-1.10) INR PTT (Alanna) (24-32) Seconds pCO2 71.1 H* 63.4 H (32.0-45.0) mmHg pO2 70.8 L 79.4 L (83.0-108.0) mmHg HCO3 28.5 H (21.0-28.0) mmol/L Total CO2 30.7 H 29.4 H (19.0-24.0) mmol/L ABG pH 7.22 L 7.25 L (7.35-7.45) ABG O2 Sat (Measured) 90.2 L 93.5 L (94.0-98.0) % Sodium (132-142) mmol/L Plasma Sodium (130-142) mmol/L Potassium (3.4-4.6) mmol/L Carbon Dioxide (24-32.6) mmol/L BUN (3-23) mg/dL Creatinine (0.4-1.4) mg/dL Est GFR (Non-Af Amer) (60-130) mL/min Random Glucose (70-110) mg/dL ALT (19-67) U/L Albumin (3.4-5.0) gm/dl Procalcitonin (0.05-0.50) ng/mL 04/28/17 04/28/17 04/28/17 Range/Units 21:05 21:05 21:05 WBC (4.0-10.5) K/mm3 RBC (4.2-5.4) M/mm3 Hgb (12.5-16.0) gm/dL Hct (37.0-47.0) % MCH (27-31) pg MCHC (32-36) g/dl RDW (11.5-14.0) % MPV (6.0-9.5) fl Immature Gran % (Auto) (0.001-0.429) % Immature Gran # (Auto) (0.000-0.0310) K/mm3 Neutrophils % (42-75.0) % Lymphocytes % (20-51) % Neutrophils # (1.3-6.0) K/mm3 Lymphocytes # (1.5-3.5) k/mm3 PT 24.8 H (9.4-11.4) Seconds INR (Anticoag Therapy) 2.38 H (0.90-1.10) INR PTT (Alanna) 39.9 H (24-32) Seconds pCO2 (32.0-45.0) mmHg pO2 (83.0-108.0) mmHg HCO3 (21.0-28.0) mmol/L Total CO2 (19.0-24.0) mmol/L ABG pH (7.35-7.45) ABG O2 Sat (Measured) (94.0-98.0) % Sodium 143 H (132-142) mmol/L Plasma Sodium 143 H (130-142) mmol/L Potassium 5.2 H (3.4-4.6) mmol/L Carbon Dioxide 34.0 H (24-32.6) mmol/L BUN 36 H (3-23) mg/dL Creatinine 2.14 H (0.4-1.4) mg/dL Est GFR (Non-Af Amer) 24 L (60-130) mL/min Random Glucose 130 H (70-110) mg/dL ALT 15 L (19-67) U/L Albumin 2.0 L (3.4-5.0) gm/dl Procalcitonin 1.53 H (0.05-0.50) ng/mL 04/29/17 04/29/17 04/29/17 Range/Units 01:10 05:00 05:00 WBC (4.0-10.5) K/mm3 RBC 3.08 L (4.2-5.4) M/mm3 Hgb 8.3 L 8.3 L (12.5-16.0) gm/dL Hct 29.6 L 29.2 L (37.0-47.0) % MCH 26.9 L (27-31) pg MCHC 28.4 L (32-36) g/dl RDW 17.0 H (11.5-14.0) % MPV 9.7 H (6.0-9.5) fl Immature Gran % (Auto) (0.001-0.429) % Immature Gran # (Auto) (0.000-0.0310) K/mm3 Neutrophils % 75.6 H (42-75.0) % Lymphocytes % 14.4 L (20-51) % Neutrophils # 7.6 H (1.3-6.0) K/mm3 Lymphocytes # 1.4 L (1.5-3.5) k/mm3 PT (9.4-11.4) Seconds INR (Anticoag Therapy) (0.90-1.10) INR PTT (Alanna) (24-32) Seconds pCO2 (32.0-45.0) mmHg pO2 (83.0-108.0) mmHg HCO3 (21.0-28.0) mmol/L Total CO2 (19.0-24.0) mmol/L ABG pH (7.35-7.45) ABG O2 Sat (Measured) (94.0-98.0) % Sodium (132-142) mmol/L Plasma Sodium (130-142) mmol/L Potassium 4.8 H (3.4-4.6) mmol/L Carbon Dioxide 33.8 H (24-32.6) mmol/L BUN 36 H (3-23) mg/dL Creatinine 2.37 H (0.4-1.4) mg/dL Est GFR (Non-Af Amer) 21 L (60-130) mL/min Random Glucose (70-110) mg/dL ALT 13 L (19-67) U/L Albumin 1.9 L (3.4-5.0) gm/dl Procalcitonin (0.05-0.50) ng/mL - EKG/Xray Findings EKG: atrial fibrillation EKG read: Interp. by me - Exam Constitutional: Present: Mild distress, Elderly, Morbidly obese Neck: Present: supple Breasts: Present: Exam deferred Respiratory: Present: respiratory distress - mild, decreased breath sounds, No wheezing Cardiovascular/Chest: Present: irregularly irregular Abdomen: Present: soft, nontender, nondistended, obese /Rectal: Present: Exam deferred Extremity: Present: no calf tenderness, lower extremity edema - +2 lower extremity edema bilat, worse in the feet. Skin Exam: Present: warm/dry, no cyanosis, pallor Cauti Physician Documentation - Urinary Catheter Management Urethral ([place]) Reason for Continuing Indwelling Catheter: ICU pt getting diuretics Date of Insertion: 04/28/17 Time of Insertion: 13:18 Assessment/Plan Plan Narrative: Acute on Chronic Respiratory Failure - pCO2 80.0 --> 63.4 decrease on bipap - continue bipap, make pt comfortable as able without using overly sedating medications - cont O2 monitoring ARDS - repeat chest xray have increasing "white-out" appearance - increasing pulmonary congestion seen, ? if there is an underlying pneumonia - currently on Rocephin 1 gm iv q 24 hours - overnight, due to worsening condition, azithromycin 500 mg was added iv q 24 hours. - lasix 40 mg iv given with minimal urine output or clinical improvement. Thus a second dose of lasix 80 mg iv x 1 was given. - this has improved patient's respiratory rate from 26 to 20. - patient's weight also increased 3.7 kg (8.14 lbs) from admission - lower extremity edema has also increased. - a minimal but noticeable improvement in patient's hourly urine output seen this am. - continue close monitoring of patient's urine output - am labs show worsening of patient's creatinine. (1.90 --> 2.14 --> 2.37) - if continues to show signs of fluid overload but poor response to diuretics - ? ultrafiltration ? vs ?other ? - monitor urine output closely - pt hypotensive yesterday and last night, although this am - this has improved and patient seems to be maintaining sbp 100-105. - levophed gtt ordered prn if needed to keep sbp >100. - at one point, bp was 65/49. - continue respiratory support on bipap ANURADHA - ? due to diuretics vs hypoperfusion of kidneys vs other ? - monitor labs Post op wound dehiscence - culture obtained from wound and sent to lab - await final results Anemia - has history of bleeding diverticuli with recurrent need for blood transfusions - hgb appears to be stable overnight - monitor closely, occult stools. Afib - cont telemetry monitoring - currently on coumadin Code status: DNR VTE: on coumadin with therapeutic INR currently GI proph: protonix - Problems/Diagnosis (1) ARDS (adult respiratory distress syndrome) Problem: Acute (2) ANURADHA (acute kidney injury) Problem: Acute (3) Acute and chronic respiratory failure Problem: Acute QualifierTitle: Respiratory failure complication: hypoxia and hypercapnia Qualified Code(s): J96.21 - Acute and chronic respiratory failure with hypoxia ; J96.22 - Acute and chronic respiratory failure with hypercapnia (4) Postoperative wound dehiscence Problem: Acute QualifierTitle: Encounter type: subsequent encounter Qualified Code(s): T81.31XD - Disruption of external operation (surgical) wound, not elsewhere classified, subsequent encounter (5) A-fib Problem: Chronic QualifierTitle: Atrial fibrillation type: chronic Qualified Code(s): I48.2 - Chronic atrial fibrillation (6) Anemia Problem: Chronic QualifierTitle: Anemia type: other cause Other causes of anemia: acute posthemorrhagic Qualified Code(s): D62 - Acute posthemorrhagic anemia (7) Anticoagulated on Coumadin Problem: Chronic (8) COPD (chronic obstructive pulmonary disease) Problem: Chronic QualifierTitle: COPD type: chronic bronchitis (9) GI bleeding Problem: Chronic QualifierTitle: GI bleed type/associated pathology: diverticulosis Qualified Code(s): K57.91 - Diverticulosis of intestine, part unspecified, without perforation or abscess with bleeding (10) HLD (hyperlipidemia) Problem: Chronic QualifierTitle: Hyperlipidemia type: unspecified Qualified Code(s): E78.5 - Hyperlipidemia, unspecified (11) HTN (hypertension) Problem: Chronic QualifierTitle: Hypertension type: essential hypertension Qualified Code( s): I10 - Essential (primary) hypertension <Fabiano Alvarez - Last Filed: 04/29/17 08:46> Subjective Subjective Narrative: Mainly CHF. Will pursue Lasix constant infusion plus very low dose dobutamine to assist with cardiac pumping function. NEEDS ongoing PAP assist. Prognosis tenuous, but still expect recovery. Arterial line will be helpful at this point. I directed all our nurse practitioner hospitatlist care for this patient. Objective - Vitals Vitals: Last Vital Signs Temp 37.0 C 04/29/17 08:05 Pulse 84 04/29/17 08:05 Resp 20 04/29/17 08:05 BP 114/75 04/29/17 08:05 Pulse Ox 96 04/29/17 08:05 - Abnormal Lab Findings Abnormal Lab Findings: Abnormal Lab Results 04/28/17 04/28/17 04/28/17 Range/Units 17:16 20:45 21:05 WBC 11.2 H (4.0-10.5) K/mm3 RBC 3.09 L (4.2-5.4) M/mm3 Hgb 8.5 L (12.5-16.0) gm/dL Hct 29.6 L (37.0-47.0) % MCH (27-31) pg MCHC 28.7 L (32-36) g/dl RDW 17.1 H (11.5-14.0) % MPV 10.0 H (6.0-9.5) fl Immature Gran % (Auto) 0.50 H (0.001-0.429) % Immature Gran # (Auto) 0.06 H (0.000-0.0310) K/mm3 Neutrophils % 78.7 H (42-75.0) % Lymphocytes % 13.2 L (20-51) % Neutrophils # 8.8 H (1.3-6.0) K/mm3 Lymphocytes # (1.5-3.5) k/mm3 PT (9.4-11.4) Seconds INR (Anticoag Therapy) (0.90-1.10) INR PTT (Alanna) (24-32) Seconds pCO2 71.1 H* 63.4 H (32.0-45.0) mmHg pO2 70.8 L 79.4 L (83.0-108.0) mmHg HCO3 28.5 H (21.0-28.0) mmol/L Total CO2 30.7 H 29.4 H (19.0-24.0) mmol/L ABG pH 7.22 L 7.25 L (7.35-7.45) ABG O2 Sat (Measured) 90.2 L 93.5 L (94.0-98.0) % Sodium (132-142) mmol/L Plasma Sodium (130-142) mmol/L Potassium (3.4-4.6) mmol/L Carbon Dioxide (24-32.6) mmol/L BUN (3-23) mg/dL Creatinine (0.4-1.4) mg/dL Est GFR (Non-Af Amer) (60-130) mL/min Random Glucose (70-110) mg/dL ALT (19-67) U/L Albumin (3.4-5.0) gm/dl Procalcitonin (0.05-0.50) ng/mL 04/28/17 04/28/17 04/28/17 Range/Units 21:05 21:05 21:05 WBC (4.0-10.5) K/mm3 RBC (4.2-5.4) M/mm3 Hgb (12.5-16.0) gm/dL Hct (37.0-47.0) % MCH (27-31) pg MCHC (32-36) g/dl RDW (11.5-14.0) % MPV (6.0-9.5) fl Immature Gran % (Auto) (0.001-0.429) % Immature Gran # (Auto) (0.000-0.0310) K/mm3 Neutrophils % (42-75.0) % Lymphocytes % (20-51) % Neutrophils # (1.3-6.0) K/mm3 Lymphocytes # (1.5-3.5) k/mm3 PT 24.8 H (9.4-11.4) Seconds INR (Anticoag Therapy) 2.38 H (0.90-1.10) INR PTT ([place]) 39.9 H (24-32) Seconds pCO2 (32.0-45.0) mmHg pO2 (83.0-108.0) mmHg HCO3 (21.0-28.0) mmol/L Total CO2 (19.0-24.0) mmol/L ABG pH (7.35-7.45) ABG O2 Sat (Measured) (94.0-98.0) % Sodium 143 H (132-142) mmol/L Plasma Sodium 143 H (130-142) mmol/L Potassium 5.2 H (3.4-4.6) mmol/L Carbon Dioxide 34.0 H (24-32.6) mmol/L BUN 36 H (3-23) mg/dL Creatinine 2.14 H (0.4-1.4) mg/dL Est GFR (Non-Af Amer) 24 L (60-130) mL/min Random Glucose 130 H (70-110) mg/dL ALT 15 L (19-67) U/L Albumin 2.0 L (3.4-5.0) gm/dl Procalcitonin 1.53 H (0.05-0.50) ng/mL 04/29/17 04/29/17 04/29/17 Range/Units 01:10 05:00 05:00 WBC (4.0-10.5) K/mm3 RBC 3.08 L (4.2-5.4) M/mm3 Hgb 8.3 L 8.3 L (12.5-16.0) gm/dL Hct 29.6 L 29.2 L (37.0-47.0) % MCH 26.9 L (27-31) pg MCHC 28.4 L (32-36) g/dl RDW 17.0 H (11.5-14.0) % MPV 9.7 H (6.0-9.5) fl Immature Gran % (Auto) (0.001-0.429) % Immature Gran # (Auto) (0.000-0.0310) K/mm3 Neutrophils % 75.6 H (42-75.0) % Lymphocytes % 14.4 L (20-51) % Neutrophils # 7.6 H (1.3-6.0) K/mm3 Lymphocytes # 1.4 L (1.5-3.5) k/mm3 PT (9.4-11.4) Seconds INR (Anticoag Therapy) (0.90-1.10) INR PTT ([place]) (24-32) Seconds pCO2 (32.0-45.0) mmHg pO2 (83.0-108.0) mmHg HCO3 (21.0-28.0) mmol/L Total CO2 (19.0-24.0) mmol/L ABG pH (7.35-7.45) ABG O2 Sat (Measured) (94.0-98.0) % Sodium (132-142) mmol/L Plasma Sodium (130-142) mmol/L Potassium 4.8 H (3.4-4.6) mmol/L Carbon Dioxide 33.8 H (24-32.6) mmol/L BUN 36 H (3-23) mg/dL Creatinine 2.37 H (0.4-1.4) mg/dL Est GFR (Non-Af Amer) 21 L (60-130) mL/min Random Glucose (70-110) mg/dL ALT 13 L (19-67) U/L Albumin 1.9 L (3.4-5.0) gm/dl Procalcitonin (0.05-0.50) ng/mL 04/29/17 Range/Units 05:00 WBC (4.0-10.5) K/mm3 RBC (4.2-5.4) M/mm3 Hgb (12.5-16.0) gm/dL Hct (37.0-47.0) % MCH (27-31) pg MCHC (32-36) g/dl RDW (11.5-14.0) % MPV (6.0-9.5) fl Immature Gran % (Auto) (0.001-0.429) % Immature Gran # (Auto) (0.000-0.0310) K/mm3 Neutrophils % (42-75.0) % Lymphocytes % (20-51) % Neutrophils # (1.3-6.0) K/mm3 Lymphocytes # (1.5-3.5) k/mm3 PT 25.9 H (9.4-11.4) Seconds INR (Anticoag Therapy) 2.49 H (0.90-1.10) INR PTT (Alanna) (24-32) Seconds pCO2 (32.0-45.0) mmHg pO2 (83.0-108.0) mmHg HCO3 (21.0-28.0) mmol/L Total CO2 (19.0-24.0) mmol/L ABG pH (7.35-7.45) ABG O2 Sat (Measured) (94.0-98.0) % Sodium (132-142) mmol/L Plasma Sodium (130-142) mmol/L Potassium (3.4-4.6) mmol/L Carbon Dioxide (24-32.6) mmol/L BUN (3-23) mg/dL Creatinine (0.4-1.4) mg/dL Est GFR (Non-Af Amer) (60-130) mL/min Random Glucose (70-110) mg/dL ALT (19-67) U/L Albumin (3.4-5.0) gm/dl Procalcitonin (0.05-0.50) ng/mL Assessment/Plan - Problems/Diagnosis (1) Acute and chronic respiratory failure Problem: Acute Qualifiers: Respiratory failure complication: hypoxia and hypercapnia Qualified Code(s) : J96.21 - Acute and chronic respiratory failure with hypoxia; J96.22 - Acute and chronic respiratory failure with hypercapnia (2) Postoperative wound dehiscence Problem: Acute Qualifiers: Encounter type: subsequent encounter Qualified Code(s): T81.31XD - Disruption of external operation (surgical) wound, not elsewhere classified, subsequent encounter (3) A-fib Problem: Chronic Qualifiers: Atrial fibrillation type: chronic Qualified Code(s): I48.2 - Chronic atrial fibrillation (4) Anemia Problem: Chronic Qualifiers: Anemia type: other cause Other causes of anemia: acute posthemorrhagic Qualified Code(s): D62 - Acute posthemorrhagic anemia (5) Anticoagulated on Coumadin Problem: Chronic (6) COPD (chronic obstructive pulmonary disease) Problem: Chronic Qualifiers: COPD type: chronic bronchitis (7) GI bleeding Problem: Chronic Qualifiers: GI bleed type/associated pathology: diverticulosis Qualified Code(s): K57.91 - Diverticulosis of intestine, part unspecified, without perforation or abscess with bleeding (8) HLD (hyperlipidemia) Problem: Chronic Qualifiers: Hyperlipidemia type: unspecified Qualified Code(s): E78.5 - Hyperlipidemia , unspecified (9) HTN (hypertension) Problem: Chronic Qualifiers: Hypertension type: essential hypertension Qualified Code(s): I10 - Essential (primary) hypertension
[2017-04-29] MEDS ORDERED: diphenhydrAMINE HCL 50 MG/ML VIAL IV PRN (06:34)
[2017-04-29] MEDS ORDERED: LIDOCAINE 35 APPL TUBE TP PRN (06:58)
[2017-04-29 07:08] LABS: Prothrombin Time (Patient) 25.9 Seconds (9.4-11.4)
[2017-04-29 07:11] LABS: INR 2.49 INR (0.90-1.10)
[2017-04-29] MEDS: DOBUTAMINE HCL IV PRN (07:17)
[2017-04-29] MEDS: D5W IV PRN (07:17)
[2017-04-29] MEDS: FUROSEMIDE IV SCH ×2 (07:33→17:57)
[2017-04-29] MEDS: NORMAL SALINE IV SCH ×2 (07:33→17:57)
[2017-04-29 08:57] LABS: Hematocrit 28.2 % (37.0-47.0)
[2017-04-29] MEDS: ACETAMINOPHEN 160 MG/5 ML BTL PO PRN ×2 (08:57→18:56)
[2017-04-29] MEDS: LETROZOLE 2.5 MG PO SCH (09:22)
[2017-04-29] MEDS: MICONAZOLE NITRATE 85 APPL BTL TP SCH ×3 (09:31→16:51)
--- NOTE | 2017-04-29 10:40 | OR ---
Anesthesia Procedure Note - Anesthesia Procedure Note Narrative: Vital Signs - Last Taken Temp 37.0 C 04/29/17 08:05 Pulse 82 04/29/17 09:00 Resp 20 04/29/17 09:00 BP 155/87 04/29/17 09:00 Pulse Ox 93 04/29/17 09:00 O2 Oxygen Delivery Method Bi-pap 04/29/17 10:37 ANESTHESIA PROCEDURE NOTE Date of procedure: 04/29/2017. Time of procedure: 10:30. Performed by: Hung Mays CRNA Orchid Transplanter: None . Preprocedure diagnosis: Respiratory distress. Need for frequent blood gas analysis.. Post procedure diagnosis: Same. Procedure: Arterial line insertion. Indications: Need for blood gas analysis.. Findings: Ultrasound-guided right radial arterial line started with a 22-gauge Angiocath. EBL: Minimal. Fluids: N/A. Specimen: N/A. Post procedure condition: The patient tolerated the procedure well. No complications were noted. Thank you for this consultation Hung Mays CRNA
[2017-04-29] MEDS: ALLOPURINOL 100 MG TABLET PO SCH (10:55)
[2017-04-29] MEDS: CHOLECALCIFEROL 1,000 UNIT CAPSULE PO SCH (10:55)
[2017-04-29] MEDS: METOPROLOL TARTRATE 25 MG TABLET PO SCH ×2 (10:55→20:38)
[2017-04-29] MEDS: MULTIVITAMINS 1 CAP CAPSULE PO SCH (10:55)
[2017-04-29] MEDS: FLUoxetine HCL 20 MG CAPSULE PO SCH (10:55)
[2017-04-29] MEDS: ZINC OXIDE 60 APPL TUBE TP SCH ×2 (11:48→20:37)
[2017-04-29 13:23] LABS: Hematocrit 27.4 % (37.0-47.0)
[2017-04-29] MEDS: MONTELUKAST SODIUM 10 MG TABLET PO SCH (16:52)
[2017-04-29] MEDS ORDERED: WARFARIN SODIUM 6 MG TABLET PO SCH (17:00)
[2017-04-29] MEDS: ALBUTEROL SULFATE 2.5 MG/3 ML VIAL.NEB IH PRN (18:07)
[2017-04-29] MEDS ORDERED: LORazepam 2 MG/ML DISP.SYRIN IV ONE (20:27)
[2017-04-29] MEDS: PANTOPRAZOLE SODIUM 40 MG in NORMAL SALINE 100 ML IV SCH (20:48)
[2017-04-29] MEDS: LORazepam 2 MG/ML DISP.SYRIN IV PRN (23:55)
[2017-04-30] MEDS: NORMAL SALINE IV SCH ×2 (04:41→15:57)
[2017-04-30] MEDS: FUROSEMIDE IV SCH ×2 (04:41→15:57)
[2017-04-30] MEDS: AZITHROMYCIN 500 MG in DEXTROSE 5 % IN WATER 250 ML IV SCH ×2 (04:47)
[2017-04-30] MEDS: LORazepam 2 MG/ML DISP.SYRIN IV PRN ×2 (05:22→22:25)
[2017-04-30 05:48] LABS: Hematocrit 28.2 % (37.0-47.0); Hemoglobin 8.2 gm/dL (12.5-16.0); Mean Cell Volume 91.6 fl (78-100); Mean Corpuscular Hemoglobin 26.6 pg (27-31); Mean Corpuscular Hgb Conc 29.1 g/dl (32-36); Mean Platelet Volume 8.7 fl (6.0-9.5); NRBC# 0.1 k/mm3 (0-1); Neutrophil # 6.8 K/mm3 (1.3-6.0); Neutrophil % 80.6 % (42-75.0); Platelet Count 249 K/mm3 (150-450); Red Blood Count 3.08 M/mm3 (4.2-5.4); Red Cell Distribution Width 17.3 % (11.5-14.0); White Blood Count 8.5 K/mm3 (4.0-10.5)
[2017-04-30] MEDS: BUDESONIDE 0.5 MG/2 ML VIAL.NEB IH SCH ×2 (06:02→18:53)
[2017-04-30 06:11] LABS: Prothrombin Time (Patient) 34.8 Seconds (9.4-11.4)
[2017-04-30 06:20] LABS: INR 3.35 INR (0.90-1.10)
[2017-04-30 07:16] LABS: Anion Gap 7.8 mmol/L (6.8-13.8); BUN/Creatinine Ratio 18.4 (9.0-21.6); Calcium * 8.4 mg/dL (7.9-10.9); Potassium 3.8 mmol/L (3.4-4.6)
[2017-04-30] MEDS: ZINC OXIDE 60 APPL TUBE TP SCH ×2 (08:43→20:16)
[2017-04-30] MEDS: MICONAZOLE NITRATE 85 APPL BTL TP SCH ×3 (08:44→16:04)
[2017-04-30] MEDS: METOPROLOL TARTRATE 25 MG TABLET PO SCH ×2 (08:47→20:15)
[2017-04-30] MEDS: LETROZOLE 2.5 MG PO SCH (08:48)
[2017-04-30] MEDS: FLUoxetine HCL 20 MG CAPSULE PO SCH (08:48)
[2017-04-30] MEDS: ALLOPURINOL 100 MG TABLET PO SCH (08:56)
[2017-04-30] MEDS: MULTIVITAMINS 1 CAP CAPSULE PO SCH (08:56)
[2017-04-30] MEDS: CHOLECALCIFEROL 1,000 UNIT CAPSULE PO SCH (08:56)
[2017-04-30] MEDS: ACETAMINOPHEN 160 MG/5 ML BTL PO PRN ×2 (10:52→18:35)
[2017-04-30] MEDS: MONTELUKAST SODIUM 10 MG TABLET PO SCH (16:05)
--- NOTE | 2017-04-30 17:18 | PN ---
Subjective - Date and Time Seen Date: 04/30/17 Time: 07:15 Subjective Narrative: Respiratory failure improving. Diruresing well. Art line infiltrated. Family concerned as she recovers, she will not leave her PAP on. Objective - Review of Systems Generalized/Overall Review: Reports: Malaise EENTM: Reports: No Symptoms Reported Respiratory: Reports: No Symptoms Reported Cardiac: Reports: No Symptoms Reported Abdominal: Reports: No Symptoms Reported Genitourinary Symptoms: Reports: No Symptoms Reported Musculoskeletal Complaints: Reports: No Symptoms Reported Neurological: Reports: No Symptoms Reported Skin: Reports: No Symptoms Reported Endocrine: Reports: No Symptoms Reported Misc: All systems neg except as marked - Vitals Vitals: Last Vital Signs Selected Entries 04/30/17 07:00 Temperature 37.1 C Temperature Temporal Artery Source Scan Pulse Rate 88 Pulse Rhythm Irregular Pulse Strength Weak Respiratory 23 H Rate Respiratory Labored Effort Respiratory Tachypnea Pattern Blood Pressure 100/51 Blood Pressure Supine Position O2 Sat by Pulse 99 Oximetry Oxygen Delivery Bi-pap Method Oxygen Flow 35 Rate - Abnormal Lab Findings Abnormal Lab Findings: Abnormal Lab Results 04/30/17 04/30/17 04/30/17 Range/Units 05:30 05:30 05:30 RBC 3.08 L (4.2-5.4) M/mm3 Hgb 8.2 L (12.5-16.0) gm/dL Hct 28.2 L (37.0-47.0) % MCH 26.6 L (27-31) pg MCHC 29.1 L (32-36) g/dl RDW 17.3 H (11.5-14.0) % Neutrophils % 80.6 H (42-75.0) % Lymphocytes % 9.7 L (20-51) % Neutrophils # 6.8 H (1.3-6.0) K/mm3 Lymphocytes # 0.8 L (1.5-3.5) k/mm3 PT 34.8 H (9.4-11.4) Seconds INR (Anticoag Therapy) 3.35 H (0.90-1.10) INR pCO2 (32.0-45.0) mmHg pO2 (83.0-108.0) mmHg HCO3 (21.0-28.0) mmol/L Total CO2 (19.0-24.0) mmol/L Base Excess (-2.0-3.0) mmol/L ABG pH (7.35-7.45) ABG O2 Sat (Measured) (94.0-98.0) % Plasma Sodium 143 H (130-142) mmol/L Carbon Dioxide 34.0 H (24-32.6) mmol/L BUN 33 H (3-23) mg/dL Creatinine 1.79 H D (0.4-1.4) mg/dL Est GFR (Non-Af Amer) 29 L D (60-130) mL/min Random Glucose 134 H D (70-110) mg/dL 04/30/17 Range/Units 05:54 RBC (4.2-5.4) M/mm3 Hgb (12.5-16.0) gm/dL Hct (37.0-47.0) % MCH (27-31) pg MCHC (32-36) g/dl RDW (11.5-14.0) % Neutrophils % (42-75.0) % Lymphocytes % (20-51) % Neutrophils # (1.3-6.0) K/mm3 Lymphocytes # (1.5-3.5) k/mm3 PT (9.4-11.4) Seconds INR (Anticoag Therapy) (0.90-1.10) INR pCO2 61.1 H (32.0-45.0) mmHg pO2 26.0 L* (83.0-108.0) mmHg HCO3 31.5 H (21.0-28.0) mmol/L Total CO2 33.4 H (19.0-24.0) mmol/L Base Excess 4.6 H (-2.0-3.0) mmol/L ABG pH 7.33 L (7.35-7.45) ABG O2 Sat (Measured) 42.0 L (94.0-98.0) % Plasma Sodium (130-142) mmol/L Carbon Dioxide (24-32.6) mmol/L BUN (3-23) mg/dL Creatinine (0.4-1.4) mg/dL Est GFR (Non-Af Amer) (60-130) mL/min Random Glucose (70-110) mg/dL - Exam Constitutional: Present: Lethargic ENT Exam: Present: normal ENT inspection Neck: Present: normal inspection Respiratory: Present: normal breath sounds Cardiovascular/Chest: Present: irregularly irregular Abdomen: Present: Normal bowel sounds, soft, nontender, nondistended, no hepatospenomegaly, obese, other - wound clean Extremity: Present: pedal edema - less Skin Exam: Present: no cyanosis, cool/dry Cauti Physician Documentation - Urinary Catheter Management Urethral ([place]) Date of Insertion: 04/28/17 Time of Insertion: 13:18 Assessment/Plan Plan Narrative: Continue. Maybe stop dobutamine and to regular floor tomorrow. Will need long talk when more recovered about PAP. - Problems/Diagnosis (1) Acute and chronic respiratory failure Problem: Acute Qualifiers: Respiratory failure complication: hypoxia and hypercapnia Qualified Code(s) : J96.21 - Acute and chronic respiratory failure with hypoxia; J96.22 - Acute and chronic respiratory failure with hypercapnia (2) Postoperative wound dehiscence Problem: Acute Qualifiers: Encounter type: subsequent encounter Qualified Code(s): T81.31XD - Disruption of external operation (surgical) wound, not elsewhere classified, subsequent encounter (3) A-fib Problem: Chronic Qualifiers: Atrial fibrillation type: chronic Qualified Code(s): I48.2 - Chronic atrial fibrillation (4) Anemia Problem: Chronic Qualifiers: Anemia type: other cause Other causes of anemia: acute posthemorrhagic Qualified Code(s): D62 - Acute posthemorrhagic anemia (5) Anticoagulated on Coumadin Problem: Chronic (6) COPD (chronic obstructive pulmonary disease) Problem: Chronic Qualifiers: COPD type: chronic bronchitis (7) GI bleeding Problem: Chronic Qualifiers: GI bleed type/associated pathology: diverticulosis Qualified Code(s): K57.91 - Diverticulosis of intestine, part unspecified, without perforation or abscess with bleeding (8) HLD (hyperlipidemia) Problem: Chronic Qualifiers: Hyperlipidemia type: unspecified Qualified Code(s): E78.5 - Hyperlipidemia , unspecified (9) HTN (hypertension) Problem: Chronic Qualifiers: Hypertension type: essential hypertension Qualified Code(s): I10 - Essential (primary) hypertension
[2017-04-30] MEDS: DOBUTAMINE HCL IV PRN (17:23)
[2017-04-30] MEDS: D5W IV PRN (17:23)
--- NOTE | 2017-04-30 17:24 | PN ---
Progess Note - Interim Narrative: 04/30/17 17:22 ECHO 04/29/17: MILD CONCENTRIC LVH, DIASTOLIC DYSFUNCTION, MILD TO MODERATE MITRAL REGURG, RVSP 56 MM HG.
[2017-04-30] MEDS: PANTOPRAZOLE SODIUM 40 MG in NORMAL SALINE 100 ML IV SCH (20:15)
[2017-05-01] MEDS: NORMAL SALINE IV SCH (02:58)
[2017-05-01] MEDS: FUROSEMIDE IV SCH (02:58)
[2017-05-01] MEDS: AZITHROMYCIN 500 MG in DEXTROSE 5 % IN WATER 250 ML IV SCH ×2 (04:00)
[2017-05-01] MEDS: ACETAMINOPHEN 160 MG/5 ML BTL PO PRN (04:37)
[2017-05-01] MEDS: ALBUTEROL SULFATE 2.5 MG/3 ML VIAL.NEB IH PRN (05:08)
[2017-05-01 05:29] LABS: Hematocrit 29.2 % (37.0-47.0); Hemoglobin 8.7 gm/dL (12.5-16.0); Mean Cell Volume 89.8 fl (78-100); Mean Corpuscular Hemoglobin 26.8 pg (27-31); Mean Corpuscular Hgb Conc 29.8 g/dl (32-36); Mean Platelet Volume 9.5 fl (6.0-9.5); NRBC# 0.1 k/mm3 (0-1); Neutrophil # 13.4 K/mm3 (1.3-6.0); Neutrophil % 85.5 % (42-75.0); Platelet Count 245 K/mm3 (150-450); Red Blood Count 3.25 M/mm3 (4.2-5.4); White Blood Count 15.7 K/mm3 (4.0-10.5)
[2017-05-01 05:32] LABS: Anion Gap 6.7 mmol/L (6.8-13.8); BUN/Creatinine Ratio 26.3 (9.0-21.6); Calcium * 8.7 mg/dL (7.9-10.9); Carbon Dioxide 35.2 mmol/L (24-32.6); Estimated Creat Clear 30.2; Potassium 3.9 mmol/L (3.4-4.6); Prothrombin Time (Patient) 41.2 Seconds (9.4-11.4)
[2017-05-01 05:34] LABS: INR 3.96 INR (0.90-1.10)
[2017-05-01] MEDS: BUDESONIDE 0.5 MG/2 ML VIAL.NEB IH SCH (06:01)
[2017-05-01] MEDS: HYDROmorphone HCL 1 MG/ML DISP.SYRIN IV PRN ×2 (06:35→08:26)
[2017-05-01 08:18] VITALS: BP 74/41
[2017-05-01] MEDS: LETROZOLE 2.5 MG PO SCH (08:18)
[2017-05-01] MEDS: FLUoxetine HCL 20 MG CAPSULE PO SCH (08:18)
[2017-05-01] MEDS: ZINC OXIDE 60 APPL TUBE TP SCH (08:18)
[2017-05-01] MEDS: METOPROLOL TARTRATE 25 MG TABLET PO SCH (08:18)
[2017-05-01] MEDS: ALLOPURINOL 100 MG TABLET PO SCH (08:18)
[2017-05-01] MEDS: CHOLECALCIFEROL 1,000 UNIT CAPSULE PO SCH (08:18)
[2017-05-01] MEDS: MULTIVITAMINS 1 CAP CAPSULE PO SCH (08:18)
[2017-05-01] MEDS: MICONAZOLE NITRATE 85 APPL BTL TP SCH (08:18)
[2017-05-01] MEDS ORDERED: POLYVINYL ALCOHOL 150 DROP BTL EACHEYE PRN (08:21)
[2017-05-01] MEDS ORDERED: PROCHLORPERAZINE EDISYLATE 5 MG/ML VIAL IV PRN (08:21)
[2017-05-01] MEDS ORDERED: ACETAMINOPHEN 325 MG TABLET PO PRN (08:21)
[2017-05-01] MEDS ORDERED: BISACODYL 10 MG SUPP.RECT RC PRN (08:21)
[2017-05-01] MEDS ORDERED: ATROPINE SULFATE 150 DROP BTL SL PRN (08:21)
[2017-05-01] MEDS ORDERED: ONDANSETRON HCL/PF 2 MG/ML VIAL IV PRN (08:21)
[2017-05-01] MEDS ORDERED: HYDROPHILIC OINTMENT 454 APPL JAR TP SCH (09:00)
[2017-05-01] MEDS: MORPHINE SULFATE 2 MG/ML DISP.SYRIN IV PRN ×2 (09:04→09:19)
[2017-05-01] MEDS: LORazepam 2 MG/ML DISP.SYRIN IV PRN ×2 (09:04→10:09)
[2017-05-01] MEDS: MORPHINE SULFATE 4 MG/ML SYRG IV PRN ×6 (09:40→10:43)
--- NOTE | 2017-05-01 11:55 | ECHO ---
This report is available in the EMR
[2017-05-01] MEDS ORDERED: WARFARIN SODIUM 6 MG TABLET PO SCH (17:00)
--- NOTE | 2017-05-01 18:48 | DS ---
Discharge Summary - Provider Primary Care Provider: Fabiano Alvarez - Diagnosis/Cause of (1) Acute and chronic respiratory failure Problems: Acute (2) Postoperative wound dehiscence Problems: Acute (3) A-fib Problems: Chronic (4) Anemia Problems: Chronic (5) Anticoagulated on Coumadin Problems: Chronic (6) COPD (chronic obstructive pulmonary disease) Problems: Chronic (7) GI bleeding Problems: Chronic (8) HLD (hyperlipidemia) Problems: Chronic (9) HTN (hypertension) Problems: Chronic (10) Aspiration pneumonia due to gastric secretions Problems: Acute - Summary Details (narrative): Probable reason for admission, respiratory failure due to patient's chronic reluctance to use PAP at nursing. PAP helped on admission. Infection covered after cultures with antibiotics. Sepsis addressed with IV fluids. IV fluids handled with constant infusion Laix and low dose dobutamine. Was improving, till patient had apparent massive gastric content aspiration pneumonia. Patient 's family opted for comfort. All were sure that is what the patient wanted. Patient peacefully. Procedures Performed: see notes below - PICC line by anesthesia - Additional Data Confirmation of as documented by pronouncing clinician: no pulse, no respirations, no heart sounds, pupils fixed and dilated
[2017-05-02] MEDS ORDERED: WARFARIN SODIUM 1 TAB TAB PO SCH (17:00)
== END 2017-05-01 10:49 | disposition expired | DRG 189 ==
LOC: ER 12:46 → SCU 15:25
PROVIDERS: ADMIT Allergy & Immunology; ATTEND Allergy & Immunology
PROC: 4A033R1 Measurement of Arterial Saturation, Peripheral, Percutaneous Approach (ICD-10-PCS; 2017-04-28)
PROC: 03HY32Z Insertion of Monitoring Device into Upper Artery, Percutaneous Approach (ICD-10-PCS; principal; 2017-04-29)
PROC: B246ZZZ Ultrasonography of Right and Left Heart (ICD-10-PCS; 2017-04-29)
DX: J96.21 Acute and chronic respiratory failure with hypoxia (principal); K57.31 Diverticulosis of large intestine without perforation or abscess with bleeding; D62 Acute posthemorrhagic anemia; N17.9 Acute kidney failure, unspecified; T81.30XD Disruption of wound, unspecified, subsequent encounter; J96.22 Acute and chronic respiratory failure with hypercapnia; R79.81 Abnormal blood-gas level; I48.2 Chronic atrial fibrillation; J42 Unspecified chronic bronchitis; E78.5 Hyperlipidemia, unspecified; I10 Essential (primary) hypertension; Z79.01 Long term (current) use of anticoagulants